=== PATIENT | female | born 1940 | race Caucasian/White ===

== ENCOUNTER 2016-06-20 12:10 | Emergency (ER) | payer OTHER ==
[~2016-06-20] VITALS: Ht 160 cm; Wt 72.3 kg
[~2016-06-20 12:10] MED LIST: ACID REFLUX MED PO; ALLOPURINOL100 MG PO; ALPRAZOLAM0.25 M2 PO; ATORVASTATIN CA80 MG PO; CALCIUM ACETAT667 MG PO; COLACE100 MG PO; FLUOXETINE HCL40 MG PO; FUROSEMIDE80 MG PO; GABAPENTIN300 MG PO; IRON325 M1 PO; LEVAQUIN500 MG PO; LEVOTHROID50 MCG PO; LEVOTHYROXINE50 MCG PO; LIPITOR80 MG PO; OXYCODONE HCL5 MG PO; PROTONIX40 MG PO; RANITIDINE HCL300 M1 PO; SENNA PLUS TAB1 EACH PO; SENNA8.6 MG PO; SENSI CARE MOIS PO; SENSIPAR30 MG PO; SEROQUEL100 MG PO; TYLENOL EXTRA500 MG PO; VITAMIN D31000 UNI2 PO; ZANTAC 2525 MG PO; ZANTAC150 M1 PO; ZEMPLAR1 MCG PO; ZYLOPRIM50 MG PO
[2016-06-20 13:34] LABS: HEMATOCRIT 36.5 % (36.0-46.0); MCH 33.2 PG (29.0-34.0); MCHC 30.7 G/DL (30.0-36.0); MCV 108.3 FL (83-99); MEAN PLAT.VOLUME 9.4 uM^3 (9.5-12.4); PLATELET COUNT 286 K/uL (156-360); RBC DIS.WIDTH-CV 14.3 % (11.8-14.6); RBC DIS.WIDTH-SD 57.1 % (39-53); RED BLOOD COUNT 3.37 M/uL (3.80-5.20); WHITE BLOOD COUNT 8.5 K/uL (4.1-10.2)
[2016-06-20 13:52] LABS: CHLORIDE 98 mEq/L (99-109); POTASSIUM 4.4 mEq/L (3.7-5.4); SODIUM 136 mEq/L (136-147)
[2016-06-20 13:54] LABS: GLUCOSE 98 mg/dL (70-99)
[2016-06-20 13:56] LABS: ANION GAP 13 MEQ/L (2-14); TOTAL BILIRUBIN 0.4 mg/dL (0.0-1.0)
[2016-06-20 13:58] LABS: ALKALINE PHOSPHATASE 92 IU/L (3-129); GFR ESTIMATE (CALCULATED) 8 mL/min/
[2016-06-20 13:59] LABS: UREA NITROGEN (BUN) 36 mg/dL (9-23)
[2016-06-20] MEDS ORDERED: PRILOSEC20 MG PO (17:34)
[2016-06-20 17:51] VITALS: BP 111/60
== END 2016-06-20 17:51 | disposition home or self-care (01) ==
LOC: EME 12:10
DX: K66.8 Other specified disorders of peritoneum (principal); K40.90 Unilateral inguinal hernia, without obstruction or gangrene, not specified as recurrent; Z85.528 Personal history of other malignant neoplasm of kidney; Z90.5 Acquired absence of kidney; Z99.2 Dependence on renal dialysis; Z85.118 Personal history of other malignant neoplasm of bronchus and lung; Z90.710 Acquired absence of both cervix and uterus
CPT/HCPCS: 80053; 81003; 85027; 99281; 99284

== ENCOUNTER 2016-07-29 08:37 | Day surgery (SDC) | payer OTHER ==
[~2016-07-29] VITALS: Ht 157.5 cm; Wt 66.0 kg
[~2016-07-29 08:37] MED LIST changes: +PRILOSEC20 MG PO
[2016-07-29 09:01] VITALS: BP 121/61
[2016-07-29 09:34] LABS: HEMATOCRIT 34.5 % (36.0-46.0); MCH 34.1 PG (29.0-34.0); MCHC 32.8 G/DL (30.0-36.0); MCV 104.2 FL (83-99); MEAN PLAT.VOLUME 9.3 uM^3 (9.5-12.4); PLATELET COUNT 262 K/uL (156-360); RBC DIS.WIDTH-CV 14.4 % (11.8-14.6); RBC DIS.WIDTH-SD 54.6 % (39-53); RED BLOOD COUNT 3.31 M/uL (3.80-5.20); WHITE BLOOD COUNT 9.9 K/uL (4.1-10.2)
[2016-07-29 09:53] LABS: ANION GAP 17 MEQ/L (2-14); CHLORIDE 98 MEQ/L (99-109); POTASSIUM 3.4 MEQ/L (3.7-5.4); SAMPLE HEMOLYSIS CHECK 0; SAMPLE ICTERIC CHECK 0; SAMPLE LIPEMIA CHECK 0; SODIUM 138 MEQ/L (136-147)
[2016-07-29 09:59] LABS: GFR ESTIMATE (CALCULATED) 6 mL/min/; GLUCOSE 132 mg/dL (70-99); UREA NITROGEN (BUN) 60 mg/dL (9-23)
[2016-07-29 13:20] VITALS: BP 152/77
[2016-07-29 14:12] VITALS: BP 130/60
[2016-07-29 14:30] VITALS: BP 136/73
== END 2016-07-29 15:02 | disposition home or self-care (01) ==
LOC: SDC 08:37
PROVIDERS: Surgery
PROC: 0YU60JZ Supplement Left Inguinal Region with Synthetic Substitute, Open Approach (ICD-10-PCS; principal; 2016-07-29)
DX: K40.90 Unilateral inguinal hernia, without obstruction or gangrene, not specified as recurrent (principal); K44.9 Diaphragmatic hernia without obstruction or gangrene; K27.9 Peptic ulcer, site unspecified, unspecified as acute or chronic, without hemorrhage or perforation; Z85.528 Personal history of other malignant neoplasm of kidney; Z85.118 Personal history of other malignant neoplasm of bronchus and lung; Z88.0 Allergy status to penicillin; Z88.2 Allergy status to sulfonamides
CPT/HCPCS: 80048; 85027; 93005; C1781; J0131; J2405; J3010

== ENCOUNTER 2017-05-22 13:50 | Inpatient (IN) | payer OTHER ==
[~2017-05-22] VITALS: Ht 160 cm; Wt 79.5 kg
[2017-05-22 14:53] LABS: BASOPHIL (%) 0.2 % (0-1); EOSINOPHIL (%) 0.4 % (0-5); EOSINOPHIL COUNT 0.1 K/uL (0-0.3); HEMATOCRIT 39.1 % (36.0-46.0); HEMOGLOBIN 12.5 G/DL (11.9-15.5); IMMATURE GRANULOCYTE (%) 1.1 % (0.0-0.7); LYMPHOCYTE (%) 5.2 % (15-42); LYMPHOCYTE COUNT 0.7 K/uL (1.0-2.8); MCH 32.4 PG (29.0-34.0); MCV 101.3 FL (83-99); MONOCYTE (%) 6.7 % (3-12); MONOCYTE COUNT 0.9 K/uL (0-0.8); NEUTROPHIL (%) 86.4 % (45-76); NEUTROPHIL COUNT 10.9 K/uL (1.8-6.4); PLATELET COUNT 356 K/uL (156-360); RBC DIS.WIDTH-CV 15.4 % (11.8-14.6); RBC DIS.WIDTH-SD 57.8 % (39-53); RED BLOOD COUNT 3.86 M/uL (3.80-5.20); WHITE BLOOD COUNT 12.6 K/uL (4.1-10.2)
[2017-05-22 15:05] LABS: PTT 26.1 SEC (25-37)
[2017-05-22 15:06] LABS: ALBUMIN 2.8 g/dL (3.2-4.8); CHLORIDE 93 mEq/L (99-109); POTASSIUM 3.1 mEq/L (3.7-5.4); SODIUM 137 mEq/L (136-147)
[2017-05-22 15:07] LABS: MAGNESIUM 2.6 mg/dL (1.3-2.7)
[2017-05-22 15:09] LABS: GLUCOSE 132 mg/dL (70-99); TOTAL PROTEIN 6.4 g/dL (6.4-8.3)
[2017-05-22 15:11] LABS: TOTAL BILIRUBIN 0.5 mg/dL (0.0-1.0)
[2017-05-22 15:12] LABS: ALKALINE PHOSPHATASE 152 IU/L (3-129)
[2017-05-22 15:13] LABS: CREATININE 9.2 mg/dL (0.6-1.3); GFR ESTIMATE (CALCULATED) 4 mL/min/
[2017-05-22 15:14] LABS: AST (GOT) 13 IU/L (2-34); UREA NITROGEN (BUN) 71 mg/dL (9-23)
[2017-05-22 15:16] LABS: ALT (GPT) 10 IU/L (3-49)
[2017-05-22 15:23] LABS: TROP-I INTERPRETATION NEGATIVE; TROPONIN-I 0.03 ng/mL (0.0-0.30)
[2017-05-22 15:24] LABS: CK-MB 0.6 ng/mL (0.0-4.9)
[2017-05-22 15:49] LABS: CKMB RELATIVE INDEX 3.3 (0.0-3.9); CREATINE KINASE 18 IU/L (1-294); TOTAL CK 18 IU/L (1-294)
[2017-05-22] MEDS ORDERED: NIFEREX-150,FE150 MG PO (20:32)
[2017-05-22] MEDS ORDERED: DIALYVITE 3,001 EACH PO (20:33)
[2017-05-22] MEDS ORDERED: AMBIEN5 MG PO (20:33)
[2017-05-22] MEDS ORDERED: FISH OIL 1,3601 EACH PO (20:34)
[2017-05-22] MEDS ORDERED: ROBITUSSIN DM118 ML PO (20:35)
[2017-05-22] MEDS ORDERED: NORCO 7.5/321 TABLET PO (20:35)
[2017-05-22 23:58] VITALS: BP 132/63
[2017-05-23] VITALS (9 sets, daily range): BP systolic 67–152; BP diastolic 47–69
[2017-05-23 08:42] LABS: HEMATOCRIT 38.3 % (36.0-46.0); HEMOGLOBIN 12.1 G/DL (11.9-15.5); MCH 32.7 PG (29.0-34.0); MCHC 31.6 G/DL (30.0-36.0); MCV 103.5 FL (83-99); PLATELET COUNT 383 K/uL (156-360); RBC DIS.WIDTH-CV 15.6 % (11.8-14.6); RBC DIS.WIDTH-SD 58.4 % (39-53); WHITE BLOOD COUNT 10.8 K/uL (4.1-10.2)
[2017-05-23 09:05] LABS: CHLORIDE 94 MEQ/L (99-109); CREATININE 8.4 MG/DL (0.6-1.3); GFR ESTIMATE (CALCULATED) 5 mL/min/; GLUCOSE 120 mg/dL (70-99); POTASSIUM 3.7 MEQ/L (3.7-5.4); SODIUM 137 MEQ/L (136-147); UREA NITROGEN (BUN) 67 mg/dL (9-23)
[2017-05-24 03:48] VITALS: BP 125/58
[2017-05-24 07:50] LABS: TYPE OF FLUID PD FLUID
[2017-05-24 08:08] VITALS: BP 107/58
[2017-05-24 08:08] LABS: APPEARANCE CLEAR/COLORLESS; BODY FLUID EOSINOPHILS 0 % (0-25); BODY FLUID RBC'S 3 /MM^3 (0-100); BODY FLUID WBC'S 1 /MM^3 (0-500); MONONUCLEAR WBC'S 100 %; POLYNUCLEAR WBC'S 0 % (0-25)
[2017-05-24 12:45] VITALS: BP 149/68
[2017-05-24 15:26] VITALS: BP 123/57
[2017-05-24 18:54] VITALS: BP 121/57
[2017-05-24 22:20] VITALS: BP 134/64
[2017-05-25 03:58] VITALS: BP 117/56
[2017-05-25 06:45] VITALS: BP 103/51
[2017-05-25 10:26] LABS: ALBUMIN 2.3 G/DL (3.2-4.8); CHLORIDE 94 MEQ/L (99-109); GFR ESTIMATE (CALCULATED) 6 mL/min/; GLUCOSE 102 mg/dL (70-99); PHOSPHORUS 4.9 mg/dL (2.5-4.9); POTASSIUM 3.1 MEQ/L (3.7-5.4); SODIUM 135 MEQ/L (136-147); UREA NITROGEN (BUN) 55 mg/dL (9-23); VANCOMYCIN, TROUGH 16.8 MCG/ML (10-20)
[2017-05-25 11:00] VITALS: BP 109/56
[2017-05-25 15:30] VITALS: BP 90/50
[2017-05-25 19:58] VITALS: BP 112/59
[2017-05-25 23:43] VITALS: BP 112/59; BP 123/59
[2017-05-26 04:10] VITALS: BP 120/56
[2017-05-26 07:25] VITALS: BP 98/54
[2017-05-26] MEDS ORDERED: HYDROCODON-ACE1 EAC7 PO (08:08)
[2017-05-26] MEDS ORDERED: LEVOFLOXACIN500 MG PO (14:18)
[2017-05-26] MEDS ORDERED: PANTOPRAZOLE SO40 MG PO (14:19)
== END 2017-05-26 16:33 | disposition home health service (06) | DRG 166 ==
LOC: EME 13:50 → 5EAST 20:03 → EDOF 20:03 → ENRESERV 20:06 → 5EAST 21:36
PROVIDERS: Emergency Medicine; Family Medicine; Internal Medicine Nephrology; Internal Medicine Pulmonary Disease
DX: J18.9 Pneumonia, unspecified organism (principal); T17.590A Other foreign object in bronchus causing asphyxiation, initial encounter; S22.42XA Multiple fractures of ribs, left side, initial encounter for closed fracture; S32.019A Unspecified fracture of first lumbar vertebra, initial encounter for closed fracture; W06.XXXA Fall from bed, initial encounter; Y92.003 Bedroom of unspecified non-institutional (private) residence as the place of occurrence of the external cause; I95.9 Hypotension, unspecified; E86.0 Dehydration; N18.6 End stage renal disease; D63.1 Anemia in chronic kidney disease; M10.9 Gout, unspecified; E78.5 Hyperlipidemia, unspecified; G47.00 Insomnia, unspecified; F41.9 Anxiety disorder, unspecified; F32.9 Major depressive disorder, single episode, unspecified; G89.29 Other chronic pain; M54.5 Low back pain; E03.9 Hypothyroidism, unspecified; K21.9 Gastro-esophageal reflux disease without esophagitis; G62.9 Polyneuropathy, unspecified; M84.48XA Pathological fracture, other site, initial encounter for fracture; E78.1 Pure hyperglyceridemia; Z88.0 Allergy status to penicillin; Z88.2 Allergy status to sulfonamides; Z99.2 Dependence on renal dialysis; Z86.718 Personal history of other venous thrombosis and embolism; Z85.528 Personal history of other malignant neoplasm of kidney; Z90.5 Acquired absence of kidney; Z85.118 Personal history of other malignant neoplasm of bronchus and lung; Z90.2 Acquired absence of lung [part of]
CPT/HCPCS: 70450; 71045; 71250; 72125; 72128; 72131; 80048; 80053; 80069; 80202; 81003; 82550; 82553; 82948; 83735; 84484; 85025; 85027; 85610; 85730; 87070; 87102; 87116; 87205; 87206; 87278; 88108; 89051; 93005; 94640; 94799; 99281; 99285; J1644; J1956; J2250; J2310; J2550; J3010; J3370; J7030

== ENCOUNTER 2017-06-18 15:45 | Day surgery (SDC) | payer OTHER ==
[~2017-06-18] VITALS: Ht 157.5 cm; Wt 78.0 kg
[~2017-06-18 15:45] MED LIST changes: +AMBIEN5 MG PO; +DIALYVITE 3,001 EACH PO; +FISH OIL 1,3601 EACH PO; +HYDROCODON-ACE1 EAC7 PO; +LEVOFLOXACIN500 MG PO; +NIFEREX-150,FE150 MG PO; +NORCO 7.5/321 TABLET PO; +PANTOPRAZOLE SO40 MG PO; +ROBITUSSIN DM118 ML PO
[2017-06-18 17:19] LABS: HEMATOCRIT 33.2 % (36.0-46.0); HEMOGLOBIN 10.3 G/DL (11.9-15.5); MCH 32.2 PG (29.0-34.0); MCV 103.8 FL (83-99); NRBC (%) 0.4 /100 WBC (0-0); RBC DIS.WIDTH-CV 14.6 % (11.8-14.6); RBC DIS.WIDTH-SD 56.1 % (39-53); WHITE BLOOD COUNT 5.3 K/uL (4.1-10.2)
[2017-06-18 17:31] LABS: CHLORIDE 98 MEQ/L (99-109); POTASSIUM 4.1 MEQ/L (3.7-5.4); SODIUM 137 MEQ/L (136-147)
[2017-06-18 17:33] VITALS: BP 140/72
[2017-06-18 17:36] LABS: PLAT.SUFFICIENCY ADEQUATE; PLATELET COUNT 194 K/uL (156-360)
[2017-06-18 17:38] LABS: CREATININE 6.3 MG/DL (0.6-1.3); GFR ESTIMATE (CALCULATED) 7 mL/min/; GLUCOSE 88 mg/dL (70-99); UREA NITROGEN (BUN) 54 mg/dL (9-23)
[2017-06-18 23:30] VITALS: BP 180/90
[2017-06-18 23:35] VITALS: BP 162/84
[2017-06-19 03:10] VITALS: BP 118/68
[2017-06-19 06:54] VITALS: BP 170/90
[2017-06-19 07:00] VITALS: BP 105/59
[2017-06-19 07:17] VITALS: BP 105/59
== END 2017-06-19 15:05 | disposition home or self-care (01) ==
LOC: SDC 15:45 → 5EAST 22:03 → 2SOUTH 22:03 → ENRESERV 22:06 → 5EAST 22:53
PROVIDERS: Surgery
PROC: 0WWG00Z Revision of Drainage Device in Peritoneal Cavity, Open Approach (ICD-10-PCS; principal; 2017-06-18)
DX: T85.611A Breakdown (mechanical) of intraperitoneal dialysis catheter, initial encounter (principal); Y83.1 Surgical operation with implant of artificial internal device as the cause of abnormal reaction of the patient, or of later complication, without mention of misadventure at the time of the procedure; N18.6 End stage renal disease; Z99.2 Dependence on renal dialysis; Z85.528 Personal history of other malignant neoplasm of kidney; Z88.0 Allergy status to penicillin; Z88.2 Allergy status to sulfonamides; Z88.5 Allergy status to narcotic agent
CPT/HCPCS: 71046; 80048; 85027; C1750; G0378; J0330; J1170; J1580; J2250; J3010; J3370; J7040; S0020

== ENCOUNTER 2017-07-11 14:44 | Inpatient (IN) | payer OTHER ==
[~2017-07-11] VITALS: Ht 154.9 cm; Wt 74.4 kg
[2017-07-11 17:01] LABS: BASOPHIL (%) 0.2 % (0-1); EOSINOPHIL (%) 0.1 % (0-5); HEMATOCRIT 32.3 % (36.0-46.0); HEMOGLOBIN 10.3 G/DL (11.9-15.5); IMMATURE GRANULOCYTE (%) 0.5 % (0.0-0.7); LYMPHOCYTE (%) 6.5 % (15-42); LYMPHOCYTE COUNT 1.1 K/uL (1.0-2.8); MCH 32.9 PG (29.0-34.0); MCHC 31.9 G/DL (30.0-36.0); MCV 103.2 FL (83-99); MONOCYTE (%) 3.6 % (3-12); MONOCYTE COUNT 0.6 K/uL (0-0.8); NEUTROPHIL (%) 89.1 % (45-76); NEUTROPHIL COUNT 14.5 K/uL (1.8-6.4); PLATELET COUNT 199 K/uL (156-360); RBC DIS.WIDTH-CV 15.6 % (11.8-14.6); RBC DIS.WIDTH-SD 59.7 % (39-53); RED BLOOD COUNT 3.13 M/uL (3.80-5.20); WHITE BLOOD COUNT 16.3 K/uL (4.1-10.2)
[2017-07-11 17:09] LABS: PTT 27.1 SEC (25-37)
[2017-07-11 17:10] LABS: ALBUMIN 2.6 g/dL (3.2-4.8); CHLORIDE 98 mEq/L (99-109); POTASSIUM 3.2 mEq/L (3.7-5.4); SODIUM 139 mEq/L (136-147)
[2017-07-11 17:11] LABS: MAGNESIUM 2.6 mg/dL (1.3-2.7)
[2017-07-11 17:12] LABS: GLUCOSE 99 mg/dL (70-99); TOTAL PROTEIN 5.1 g/dL (6.4-8.3)
[2017-07-11 17:14] LABS: TOTAL BILIRUBIN 0.5 mg/dL (0.0-1.0)
[2017-07-11 17:16] LABS: ALKALINE PHOSPHATASE 134 IU/L (3-129); CREATININE 6.5 mg/dL (0.6-1.3); GFR ESTIMATE (CALCULATED) 7 mL/min/
[2017-07-11 17:17] LABS: UREA NITROGEN (BUN) 46 mg/dL (9-23)
[2017-07-11 17:18] LABS: AST (GOT) 17 IU/L (2-34)
[2017-07-11 17:19] LABS: ALT (GPT) 28 IU/L (3-49)
[2017-07-11] MEDS ORDERED: PROTONIX40 MG PO (17:42)
[2017-07-11 19:50] VITALS: BP 135/82
[2017-07-11 23:38] VITALS: BP 129/64
[2017-07-12 05:32] LABS: BASOPHIL (%) 0.1 % (0-1); EOSINOPHIL (%) 0.7 % (0-5); EOSINOPHIL COUNT 0.1 K/uL (0-0.3); HEMATOCRIT 30.2 % (36.0-46.0); HEMOGLOBIN 9.4 G/DL (11.9-15.5); IMMATURE GRANULOCYTE (%) 0.6 % (0.0-0.7); LYMPHOCYTE COUNT 2.6 K/uL (1.0-2.8); MCH 32.3 PG (29.0-34.0); MCHC 31.1 G/DL (30.0-36.0); MCV 103.8 FL (83-99); MONOCYTE (%) 4.6 % (3-12); MONOCYTE COUNT 0.7 K/uL (0-0.8); PLATELET COUNT 244 K/uL (156-360); RBC DIS.WIDTH-CV 15.6 % (11.8-14.6); RBC DIS.WIDTH-SD 58.6 % (39-53); RED BLOOD COUNT 2.91 M/uL (3.80-5.20); WHITE BLOOD COUNT 14.5 K/uL (4.1-10.2)
[2017-07-12 05:40] VITALS: BP 121/58
[2017-07-12 06:17] LABS: CHLORIDE 95 MEQ/L (99-109); CREATININE 6.5 MG/DL (0.6-1.3); GFR ESTIMATE (CALCULATED) 7 mL/min/; GLUCOSE 111 mg/dL (70-99); SODIUM 137 MEQ/L (136-147); UREA NITROGEN (BUN) 48 mg/dL (9-23)
[2017-07-12 11:20] VITALS: BP 141/71
[2017-07-12 15:12] VITALS: BP 135/70
[2017-07-12 19:05] VITALS: BP 93/55
[2017-07-13 05:02] VITALS: BP 114/60
[2017-07-13 05:30] LABS: BASOPHIL (%) 0.2 % (0-1); EOSINOPHIL (%) 0.6 % (0-5); EOSINOPHIL COUNT 0.1 K/uL (0-0.3); HEMATOCRIT 29.5 % (36.0-46.0); LYMPHOCYTE (%) 17.9 % (15-42); LYMPHOCYTE COUNT 1.8 K/uL (1.0-2.8); MCHC 30.5 G/DL (30.0-36.0); MONOCYTE (%) 7.2 % (3-12); MONOCYTE COUNT 0.7 K/uL (0-0.8); NEUTROPHIL (%) 73.1 % (45-76); NEUTROPHIL COUNT 7.2 K/uL (1.8-6.4); PLATELET COUNT 214 K/uL (156-360); RBC DIS.WIDTH-CV 15.8 % (11.8-14.6); RBC DIS.WIDTH-SD 61.1 % (39-53); RED BLOOD COUNT 2.81 M/uL (3.80-5.20); WHITE BLOOD COUNT 9.8 K/uL (4.1-10.2)
[2017-07-13 06:12] LABS: CHLORIDE 97 MEQ/L (99-109); CREATININE 5.8 MG/DL (0.6-1.3); GFR ESTIMATE (CALCULATED) 8 mL/min/; GLUCOSE 118 mg/dL (70-99); SODIUM 136 MEQ/L (136-147); UREA NITROGEN (BUN) 44 mg/dL (9-23)
[2017-07-13 06:18] LABS: POTASSIUM 3.8 MEQ/L (3.7-5.4)
[2017-07-13 08:40] VITALS: BP 99/53
[2017-07-13 12:36] VITALS: BP 99/52
[2017-07-13 21:07] VITALS: BP 103/59
[2017-07-13 23:37] VITALS: BP 101/52
[2017-07-14 00:19] VITALS: BP 90/52
[2017-07-14 05:10] LABS: BASOPHIL (%) 0.3 % (0-1); EOSINOPHIL COUNT 0.2 K/uL (0-0.3); HEMATOCRIT 29.6 % (36.0-46.0); HEMOGLOBIN 9.3 G/DL (11.9-15.5); IMMATURE GRANULOCYTE (%) 1.3 % (0.0-0.7); LYMPHOCYTE (%) 24.9 % (15-42); LYMPHOCYTE COUNT 2.5 K/uL (1.0-2.8); MCHC 31.4 G/DL (30.0-36.0); MONOCYTE (%) 7.8 % (3-12); MONOCYTE COUNT 0.8 K/uL (0-0.8); NEUTROPHIL (%) 63.7 % (45-76); NEUTROPHIL COUNT 6.3 K/uL (1.8-6.4); PLATELET COUNT 220 K/uL (156-360); RBC DIS.WIDTH-CV 16.1 % (11.8-14.6); RBC DIS.WIDTH-SD 61.9 % (39-53); RED BLOOD COUNT 2.82 M/uL (3.80-5.20); WHITE BLOOD COUNT 9.9 K/uL (4.1-10.2)
[2017-07-14 05:15] VITALS: BP 72/44
[2017-07-14 06:07] LABS: CHLORIDE 97 MEQ/L (99-109); CREATININE 5.7 MG/DL (0.6-1.3); GFR ESTIMATE (CALCULATED) 8 mL/min/; GLUCOSE 101 mg/dL (70-99); POTASSIUM 3.7 MEQ/L (3.7-5.4); SODIUM 135 MEQ/L (136-147); UREA NITROGEN (BUN) 42 mg/dL (9-23)
[2017-07-14 07:01] VITALS: BP 84/77
[2017-07-14 08:20] VITALS: BP 100/53
[2017-07-14 20:30] VITALS: BP 103/58
[2017-07-15 00:35] VITALS: BP 95/45
[2017-07-15 03:00] VITALS: BP 113/56
[2017-07-15 06:01] LABS: CHLORIDE 94 MEQ/L (99-109); CREATININE 5.6 MG/DL (0.6-1.3); GFR ESTIMATE (CALCULATED) 8 mL/min/; GLUCOSE 103 mg/dL (70-99); SODIUM 131 MEQ/L (136-147); UREA NITROGEN (BUN) 44 mg/dL (9-23)
[2017-07-15 06:09] LABS: BASOPHIL (%) 0.5 % (0-1); BASOPHIL COUNT 0.1 K/uL (0-0.1); EOSINOPHIL (%) 2.4 % (0-5); EOSINOPHIL COUNT 0.3 K/uL (0-0.3); HEMATOCRIT 27.2 % (36.0-46.0); HEMOGLOBIN 8.4 G/DL (11.9-15.5); IMMATURE GRANULOCYTE (%) 2.4 % (0.0-0.7); LYMPHOCYTE (%) 25.7 % (15-42); LYMPHOCYTE COUNT 2.7 K/uL (1.0-2.8); MCH 32.6 PG (29.0-34.0); MCHC 30.9 G/DL (30.0-36.0); MCV 105.4 FL (83-99); MONOCYTE (%) 8.8 % (3-12); MONOCYTE COUNT 0.9 K/uL (0-0.8); NEUTROPHIL (%) 60.2 % (45-76); NEUTROPHIL COUNT 6.3 K/uL (1.8-6.4); PLATELET COUNT 193 K/uL (156-360); RBC DIS.WIDTH-CV 15.9 % (11.8-14.6); RBC DIS.WIDTH-SD 61.1 % (39-53); RED BLOOD COUNT 2.58 M/uL (3.80-5.20); WHITE BLOOD COUNT 10.5 K/uL (4.1-10.2)
[2017-07-15 07:32] VITALS: BP 95/64
[2017-07-15 16:01] VITALS: BP 101/74
[2017-07-15 22:49] VITALS: BP 100/61
[2017-07-16] VITALS (8 sets, daily range): BP systolic 79–132; BP diastolic 5–59
[2017-07-16 05:17] LABS: BASOPHIL (%) 0.6 % (0-1); BASOPHIL COUNT 0.1 K/uL (0-0.1); EOSINOPHIL (%) 2.6 % (0-5); EOSINOPHIL COUNT 0.2 K/uL (0-0.3); HEMATOCRIT 27.3 % (36.0-46.0); HEMOGLOBIN 8.5 G/DL (11.9-15.5); IMMATURE GRANULOCYTE (%) 4.9 % (0.0-0.7); LYMPHOCYTE (%) 31.4 % (15-42); LYMPHOCYTE COUNT 2.8 K/uL (1.0-2.8); MCH 32.6 PG (29.0-34.0); MCHC 31.1 G/DL (30.0-36.0); MCV 104.6 FL (83-99); MONOCYTE (%) 8.1 % (3-12); MONOCYTE COUNT 0.7 K/uL (0-0.8); NEUTROPHIL (%) 52.4 % (45-76); NEUTROPHIL COUNT 4.7 K/uL (1.8-6.4); PLATELET COUNT 204 K/uL (156-360); RBC DIS.WIDTH-CV 15.9 % (11.8-14.6); RBC DIS.WIDTH-SD 59.7 % (39-53); RED BLOOD COUNT 2.61 M/uL (3.80-5.20); WHITE BLOOD COUNT 8.9 K/uL (4.1-10.2)
[2017-07-16 05:51] LABS: CHLORIDE 94 MEQ/L (99-109); CREATININE 5.5 MG/DL (0.6-1.3); GFR ESTIMATE (CALCULATED) 8 mL/min/; GLUCOSE 103 mg/dL (70-99); POTASSIUM 4.6 MEQ/L (3.7-5.4); SODIUM 133 MEQ/L (136-147); UREA NITROGEN (BUN) 42 mg/dL (9-23)
[2017-07-17 00:20] VITALS: BP 87/52
[2017-07-17 05:13] LABS: HEMATOCRIT 27.5 % (36.0-46.0); HEMOGLOBIN 8.7 G/DL (11.9-15.5); MCH 33.1 PG (29.0-34.0); MCHC 31.6 G/DL (30.0-36.0); MCV 104.6 FL (83-99); PLATELET COUNT 218 K/uL (156-360); RBC DIS.WIDTH-CV 15.9 % (11.8-14.6); RBC DIS.WIDTH-SD 60.2 % (39-53); RED BLOOD COUNT 2.63 M/uL (3.80-5.20); WHITE BLOOD COUNT 9.6 K/uL (4.1-10.2)
[2017-07-17 05:31] VITALS: BP 88/47
[2017-07-17 05:38] LABS: CHLORIDE 93 MEQ/L (99-109); CREATININE 5.2 MG/DL (0.6-1.3); GFR ESTIMATE (CALCULATED) 9 mL/min/; GLUCOSE 102 mg/dL (70-99); SODIUM 133 MEQ/L (136-147); UREA NITROGEN (BUN) 46 mg/dL (9-23)
[2017-07-17 05:39] LABS: POTASSIUM 3.5 MEQ/L (3.7-5.4)
[2017-07-17 06:25] LABS: ABS NEUTROPHIL COUNT 5.8; ANISOCYTOSIS 1+; ATYPICAL LYMPHOCYTE 2.6 %; BAND NEUTROPHILS 2.6 % (0-8.0); BASOPH.STIPPLING 1+; BASOPHILS 1.7 %; EOSINOPHIL ABS CT 0.2; EOSINOPHILS 1.7 % (0-5.0); LYMPHOCYTES 24.4 % (15.0-45.0); MACROCYTES 1+; METAMYELOCYTES 2.6 %; MONOCYTES 5.2 % (0-9.0); MYELOCYTES 0.9 %; NUCLEATED RBC'S 0.9; PLAT.SUFFICIENCY ADEQUATE; SEG.NEUTROPHILS 58.3 % (46.0-76.0)
[2017-07-17 08:09] VITALS: BP 103/59
[2017-07-17] MEDS ORDERED: SENSIPAR30 MG PO (09:00)
[2017-07-17] MEDS ORDERED: ENDOCET 5-3251 EACH PO (09:02)
[2017-07-17 11:20] VITALS: BP 101/61
[2017-07-17 19:08] VITALS: BP 119/70
[2017-07-18 00:28] VITALS: BP 90/52
[2017-07-18 05:32] LABS: HEMATOCRIT 25.9 % (36.0-46.0); HEMOGLOBIN 8.1 G/DL (11.9-15.5); MCH 32.5 PG (29.0-34.0); MCHC 31.3 G/DL (30.0-36.0); PLATELET COUNT 210 K/uL (156-360); RBC DIS.WIDTH-CV 15.9 % (11.8-14.6); RBC DIS.WIDTH-SD 59.7 % (39-53); RED BLOOD COUNT 2.49 M/uL (3.80-5.20); WHITE BLOOD COUNT 8.8 K/uL (4.1-10.2)
[2017-07-18 05:55] LABS: CHLORIDE 93 MEQ/L (99-109); CREATININE 5.2 MG/DL (0.6-1.3); GFR ESTIMATE (CALCULATED) 9 mL/min/; GLUCOSE 96 mg/dL (70-99); POTASSIUM 3.3 MEQ/L (3.7-5.4); SODIUM 132 MEQ/L (136-147); UREA NITROGEN (BUN) 45 mg/dL (9-23)
[2017-07-18 06:03] LABS: ABS NEUTROPHIL COUNT 6.2; ANISOCYTOSIS 2+; BAND NEUTROPHILS 2.6 % (0-8.0); EOSINOPHIL ABS CT 0; LYMPHOCYTES 17.6 % (15.0-45.0); MACROCYTES 2+; MONOCYTES 9.7 % (0-9.0); MYELOCYTES 2.6 %; PLAT.SUFFICIENCY ADEQUATE; SEG.NEUTROPHILS 67.5 % (46.0-76.0); SMUDGE CELLS 4.4
[2017-07-18 08:20] VITALS: BP 115/56
== END 2017-07-18 12:58 | disposition home or self-care (01) | DRG 480 ==
LOC: EME 14:44 → EDOF 17:36 → 4EAST 17:36 → ENRESERV 17:48 → 4EAST 19:42
PROVIDERS: Emergency Medicine; Family Medicine; Internal Medicine Nephrology; Orthopaedic Surgery Hand Surgery
PROC: 0QS634Z Reposition Right Upper Femur with Internal Fixation Device, Percutaneous Approach (ICD-10-PCS; principal; 2017-07-16)
DX: S72.141A Displaced intertrochanteric fracture of right femur, initial encounter for closed fracture (principal); N18.6 End stage renal disease; E87.6 Hypokalemia; Y93.01 Activity, walking, marching and hiking; K21.9 Gastro-esophageal reflux disease without esophagitis; W01.0XXA Fall on same level from slipping, tripping and stumbling without subsequent striking against object, initial encounter; R73.9 Hyperglycemia, unspecified; E78.5 Hyperlipidemia, unspecified; I12.0 Hypertensive chronic kidney disease with stage 5 chronic kidney disease or end stage renal disease; S00.03XA Contusion of scalp, initial encounter; E78.1 Pure hyperglyceridemia; E55.9 Vitamin D deficiency, unspecified; F51.04 Psychophysiologic insomnia; D63.1 Anemia in chronic kidney disease; C78.00 Secondary malignant neoplasm of unspecified lung; F41.9 Anxiety disorder, unspecified; F32.9 Major depressive disorder, single episode, unspecified; E03.9 Hypothyroidism, unspecified; S32.010D Wedge compression fracture of first lumbar vertebra, subsequent encounter for fracture with routine healing; Y93.9 Activity, unspecified; Z88.2 Allergy status to sulfonamides; Z99.2 Dependence on renal dialysis; Z88.0 Allergy status to penicillin; Z88.5 Allergy status to narcotic agent; Z90.5 Acquired absence of kidney; Z90.710 Acquired absence of both cervix and uterus; Z85.528 Personal history of other malignant neoplasm of kidney; R09.02 Hypoxemia
CPT/HCPCS: 70450; 71045; 71250; 72125; 73502; 73560; 76000; 80048; 80053; 83735; 85014; 85018; 85025; 85610; 85730; 93005; 94799; 97530 GO; 97530 GP; 99281; 99285; C1713; J0690; J0881; J1100; J1170; J1644; J2405; J3010; J3480; J7050

== ENCOUNTER 2017-07-21 13:09 | Inpatient (IN) | payer OTHER ==
[~2017-07-21] VITALS: Ht 157.5 cm; Wt 79.8 kg
[~2017-07-21 13:09] MED LIST changes: +ENDOCET 5-3251 EACH PO
[2017-07-21 14:49] LABS: BASOPHIL (%) 0.2 % (0-1); EOSINOPHIL (%) 1.2 % (0-5); EOSINOPHIL COUNT 0.2 K/uL (0-0.3); HEMATOCRIT 28.3 % (36.0-46.0); IMMATURE GRANULOCYTE (%) 1.7 % (0.0-0.7); LYMPHOCYTE (%) 11.5 % (15-42); LYMPHOCYTE COUNT 1.5 K/uL (1.0-2.8); MCH 33.3 PG (29.0-34.0); MCHC 31.8 G/DL (30.0-36.0); MCV 104.8 FL (83-99); MONOCYTE (%) 5.6 % (3-12); MONOCYTE COUNT 0.7 K/uL (0-0.8); NEUTROPHIL (%) 79.8 % (45-76); NEUTROPHIL COUNT 10.1 K/uL (1.8-6.4); PLATELET COUNT 186 K/uL (156-360); RBC DIS.WIDTH-CV 16.5 % (11.8-14.6); RBC DIS.WIDTH-SD 62.1 % (39-53); WHITE BLOOD COUNT 12.6 K/uL (4.1-10.2)
[2017-07-21 14:58] LABS: INTER. NORMALIZED RATIO 1.1
[2017-07-21 15:01] LABS: CHLORIDE 99 mEq/L (99-109)
[2017-07-21 15:01] LABS: PTT 24.5 SEC (25-37)
[2017-07-21 15:02] LABS: GLUCOSE 92 mg/dL (70-99)
[2017-07-21 15:06] LABS: GFR ESTIMATE (CALCULATED) 7 mL/min/; POTASSIUM 4.1 mEq/L (3.7-5.4); SODIUM 140 mEq/L (136-147)
[2017-07-21 15:07] LABS: CREATININE 6.3 mg/dL (0.6-1.3); UREA NITROGEN (BUN) 60 mg/dL (9-23)
[2017-07-21 15:10] LABS: TROP-I INTERPRETATION NEGATIVE; TROPONIN-I 0.13 ng/mL (0.0-0.30)
[2017-07-21 19:20] VITALS: BP 109/55
[2017-07-21 23:59] VITALS: BP 78/46
[2017-07-22] VITALS (7 sets, daily range): BP systolic 86–113; BP diastolic 45–62
[2017-07-22 05:33] LABS: BASOPHIL (%) 0.3 % (0-1); EOSINOPHIL (%) 2.6 % (0-5); EOSINOPHIL COUNT 0.2 K/uL (0-0.3); HEMATOCRIT 24.9 % (36.0-46.0); HEMOGLOBIN 7.6 G/DL (11.9-15.5); IMMATURE GRANULOCYTE (%) 2.8 % (0.0-0.7); LYMPHOCYTE (%) 22.2 % (15-42); MCHC 30.5 G/DL (30.0-36.0); MCV 108.3 FL (83-99); MONOCYTE (%) 8.3 % (3-12); MONOCYTE COUNT 0.7 K/uL (0-0.8); NEUTROPHIL (%) 63.8 % (45-76); NEUTROPHIL COUNT 5.7 K/uL (1.8-6.4); PLATELET COUNT 164 K/uL (156-360); RBC DIS.WIDTH-CV 16.7 % (11.8-14.6); RBC DIS.WIDTH-SD 65.5 % (39-53)
[2017-07-22 06:05] LABS: CREATININE 5.9 MG/DL (0.6-1.3); GFR ESTIMATE (CALCULATED) 7 mL/min/; GLUCOSE 94 mg/dL (70-99); POTASSIUM 4.1 MEQ/L (3.7-5.4); SODIUM 138 MEQ/L (136-147); UREA NITROGEN (BUN) 49 mg/dL (9-23)
[2017-07-22 06:09] LABS: CHLORIDE 105 MEQ/L (99-109)
[2017-07-23] VITALS (12 sets, daily range): BP systolic 91–127; BP diastolic 53–68
[2017-07-23 05:14] LABS: BASOPHIL (%) 0.3 % (0-1); EOSINOPHIL (%) 1.8 % (0-5); EOSINOPHIL COUNT 0.2 K/uL (0-0.3); HEMATOCRIT 29.4 % (36.0-46.0); HEMOGLOBIN 9.1 G/DL (11.9-15.5); IMMATURE GRANULOCYTE (%) 3.5 % (0.0-0.7); LYMPHOCYTE (%) 16.4 % (15-42); MCV 103.5 FL (83-99); MONOCYTE (%) 8.1 % (3-12); NEUTROPHIL (%) 69.9 % (45-76); NEUTROPHIL COUNT 8.3 K/uL (1.8-6.4); PLATELET COUNT 183 K/uL (156-360); RBC DIS.WIDTH-CV 18.6 % (11.8-14.6); RBC DIS.WIDTH-SD 70.4 % (39-53); RED BLOOD COUNT 2.84 M/uL (3.80-5.20); WHITE BLOOD COUNT 11.9 K/uL (4.1-10.2)
[2017-07-23 05:55] LABS: CHLORIDE 100 MEQ/L (99-109); CREATININE 5.7 MG/DL (0.6-1.3); GFR ESTIMATE (CALCULATED) 8 mL/min/; GLUCOSE 114 mg/dL (70-99); POTASSIUM 3.5 MEQ/L (3.7-5.4); SODIUM 135 MEQ/L (136-147); UREA NITROGEN (BUN) 47 mg/dL (9-23); VANCOMYCIN, TROUGH 14.6 MCG/ML (10-20)
[2017-07-23 13:32] LABS: HEPATITIS B SURFACE ANTIBODY Nonreactive; HEPATITIS B SURFACE ANTIGEN Nonreactive; HEPATITIS C ANTIBODY Nonreactive
[2017-07-23 13:33] LABS: ANTI-HEPATITIS B CORE (TOTAL) Nonreactive
[2017-07-24 06:39] LABS: CHLORIDE 103 MEQ/L (99-109); CREATININE 5.8 MG/DL (0.6-1.3); GFR ESTIMATE (CALCULATED) 8 mL/min/; POTASSIUM 4.2 MEQ/L (3.7-5.4); SODIUM 137 MEQ/L (136-147); UREA NITROGEN (BUN) 48 mg/dL (9-23)
[2017-07-24 06:40] LABS: GLUCOSE 75 mg/dL (70-99)
[2017-07-24 06:53] LABS: BASOPHIL (%) 0.2 % (0-1); EOSINOPHIL (%) 2.7 % (0-5); EOSINOPHIL COUNT 0.2 K/uL (0-0.3); HEMATOCRIT 29.4 % (36.0-46.0); HEMOGLOBIN 9.4 G/DL (11.9-15.5); IMMATURE GRANULOCYTE (%) 3.1 % (0.0-0.7); LYMPHOCYTE (%) 20.2 % (15-42); LYMPHOCYTE COUNT 1.7 K/uL (1.0-2.8); MCH 31.2 PG (29.0-34.0); MONOCYTE (%) 7.4 % (3-12); MONOCYTE COUNT 0.6 K/uL (0-0.8); NEUTROPHIL (%) 66.4 % (45-76); NEUTROPHIL COUNT 5.7 K/uL (1.8-6.4); PLATELET COUNT 168 K/uL (156-360); RED BLOOD COUNT 3.01 M/uL (3.80-5.20); WHITE BLOOD COUNT 8.5 K/uL (4.1-10.2)
[2017-07-24 06:54] LABS: MCV 97.7 FL (83-99)
[2017-07-24 07:00] VITALS: BP 114/53
[2017-07-24 15:27] VITALS: BP 129/67
[2017-07-25 00:54] VITALS: BP 105/52
[2017-07-25 06:01] LABS: BASOPHIL (%) 0.4 % (0-1); EOSINOPHIL (%) 2.1 % (0-5); EOSINOPHIL COUNT 0.2 K/uL (0-0.3); HEMATOCRIT 30.5 % (36.0-46.0); HEMOGLOBIN 9.6 G/DL (11.9-15.5); IMMATURE GRANULOCYTE (%) 2.5 % (0.0-0.7); LYMPHOCYTE (%) 20.4 % (15-42); LYMPHOCYTE COUNT 1.6 K/uL (1.0-2.8); MCH 31.3 PG (29.0-34.0); MCHC 31.5 G/DL (30.0-36.0); MCV 99.3 FL (83-99); MONOCYTE (%) 9.4 % (3-12); MONOCYTE COUNT 0.8 K/uL (0-0.8); NEUTROPHIL (%) 65.2 % (45-76); NEUTROPHIL COUNT 5.3 K/uL (1.8-6.4); PLATELET COUNT 145 K/uL (156-360); RBC DIS.WIDTH-CV 20.4 % (11.8-14.6); RBC DIS.WIDTH-SD 74.1 % (39-53); RED BLOOD COUNT 3.07 M/uL (3.80-5.20); WHITE BLOOD COUNT 8.1 K/uL (4.1-10.2)
[2017-07-25 06:36] LABS: CHLORIDE 100 MEQ/L (99-109); GFR ESTIMATE (CALCULATED) 14 mL/min/; GLUCOSE 78 mg/dL (70-99); SODIUM 134 MEQ/L (136-147); UREA NITROGEN (BUN) 24 mg/dL (9-23)
[2017-07-25 06:38] LABS: CREATININE 3.3 MG/DL (0.6-1.3)
[2017-07-25 06:58] VITALS: BP 115/59
[2017-07-25 15:15] VITALS: BP 125/58
[2017-07-26 00:03] VITALS: BP 99/50
[2017-07-26 04:10] VITALS: BP 112/54
[2017-07-26 06:23] LABS: BASOPHIL (%) 0.4 % (0-1); EOSINOPHIL (%) 2.7 % (0-5); EOSINOPHIL COUNT 0.2 K/uL (0-0.3); HEMATOCRIT 28.8 % (36.0-46.0); HEMOGLOBIN 9.1 G/DL (11.9-15.5); IMMATURE GRANULOCYTE (%) 1.9 % (0.0-0.7); LYMPHOCYTE (%) 18.8 % (15-42); LYMPHOCYTE COUNT 1.5 K/uL (1.0-2.8); MCH 31.5 PG (29.0-34.0); MCHC 31.6 G/DL (30.0-36.0); MCV 99.7 FL (83-99); MONOCYTE (%) 9.2 % (3-12); MONOCYTE COUNT 0.7 K/uL (0-0.8); NEUTROPHIL COUNT 5.2 K/uL (1.8-6.4); PLATELET COUNT 152 K/uL (156-360); RBC DIS.WIDTH-CV 19.6 % (11.8-14.6); RBC DIS.WIDTH-SD 70.5 % (39-53); RED BLOOD COUNT 2.89 M/uL (3.80-5.20); WHITE BLOOD COUNT 7.8 K/uL (4.1-10.2)
[2017-07-26 06:48] LABS: CHLORIDE 103 MEQ/L (99-109); GFR ESTIMATE (CALCULATED) 10 mL/min/; GLUCOSE 76 mg/dL (70-99); POTASSIUM 3.7 MEQ/L (3.7-5.4); SODIUM 137 MEQ/L (136-147); UREA NITROGEN (BUN) 31 mg/dL (9-23); VANCOMYCIN, TROUGH 20.6 MCG/ML (10-20)
[2017-07-26 06:52] LABS: CREATININE 4.6 MG/DL (0.6-1.3)
[2017-07-26 07:44] VITALS: BP 101/53
[2017-07-26 11:58] VITALS: BP 116/58
[2017-07-26 15:59] VITALS: BP 108/60
[2017-07-26 23:59] VITALS: BP 123/58
[2017-07-27 08:38] VITALS: BP 126/60
[2017-07-27 15:53] VITALS: BP 111/58
[2017-07-27 22:59] VITALS: BP 113/54
[2017-07-28 07:26] VITALS: BP 98/51
[2017-07-28] MEDS ORDERED: CEFTIN500 MG PO (15:45)
[2017-07-28] MEDS ORDERED: ENDOCET 7.5-321 EACH PO (15:45)
[2017-07-28 16:23] VITALS: BP 98/54
== END 2017-07-28 18:08 | DRG 193 ==
LOC: EME 13:09 → 4EAST 17:04 → EDOF 17:04 → ENRESERV 17:08 → 4EAST 19:21 → CANRESERV 07-23 07:23 → 4EAST 07-23 07:23 → ENRESERV 07-23 07:23 → 5EAST 07-23 12:41
PROVIDERS: Emergency Medicine; Family Medicine; Internal Medicine Nephrology
DX: J18.9 Pneumonia, unspecified organism (principal); Y95 Nosocomial condition; R09.02 Hypoxemia; I95.9 Hypotension, unspecified; I12.0 Hypertensive chronic kidney disease with stage 5 chronic kidney disease or end stage renal disease; N18.6 End stage renal disease; D63.1 Anemia in chronic kidney disease; E87.6 Hypokalemia; R73.9 Hyperglycemia, unspecified; L89.610 Pressure ulcer of right heel, unstageable; L89.91 Pressure ulcer of unspecified site, stage 1; E03.9 Hypothyroidism, unspecified; E55.9 Vitamin D deficiency, unspecified; E78.1 Pure hyperglyceridemia; E78.5 Hyperlipidemia, unspecified; K21.0 Gastro-esophageal reflux disease with esophagitis; K59.03 Drug induced constipation; T40.2X5A Adverse effect of other opioids, initial encounter; M81.0 Age-related osteoporosis without current pathological fracture; F41.9 Anxiety disorder, unspecified; F32.9 Major depressive disorder, single episode, unspecified; M10.9 Gout, unspecified; Z85.528 Personal history of other malignant neoplasm of kidney; Z99.2 Dependence on renal dialysis; Z90.5 Acquired absence of kidney; Z88.0 Allergy status to penicillin; Z88.2 Allergy status to sulfonamides; Z88.5 Allergy status to narcotic agent; S72.141D Displaced intertrochanteric fracture of right femur, subsequent encounter for closed fracture with routine healing; S32.019D Unspecified fracture of first lumbar vertebra, subsequent encounter for fracture with routine healing
CPT/HCPCS: 71045; 71250; 73552; 76775; 80048; 80202; 81003; 82533 91; 83605; 84484; 85025; 85610; 85730; 86704; 86706; 86803; 86850; 86870; 86900; 86901; 86905; 86920; 87040; 87340; 87641; 93005; 93306; 94799; 97530 GO; 97530 GP; 99202; 99281; 99285; A6214; C1750; C1894; J0692; J0881; J1644; J1956; J2250; J3010; J3370; J7030; J7040; J7050; P9016

== ENCOUNTER 2017-08-07 14:27 | Emergency (ER) | payer OTHER ==
[~2017-08-07] VITALS: Ht 165.1 cm; Wt 72.6 kg
[~2017-08-07 14:27] MED LIST changes: +CEFTIN500 MG PO; +ENDOCET 7.5-321 EACH PO
[2017-08-07 15:41] LABS: HEMATOCRIT 29.1 % (36.0-46.0); HEMOGLOBIN 9.2 G/DL (11.9-15.5); MCH 31.2 PG (29.0-34.0); MCHC 31.6 G/DL (30.0-36.0); MCV 98.6 FL (83-99); PLATELET COUNT 193 K/uL (156-360); RBC DIS.WIDTH-CV 17.4 % (11.8-14.6); RBC DIS.WIDTH-SD 63.4 % (39-53); RED BLOOD COUNT 2.95 M/uL (3.80-5.20)
[2017-08-07 15:49] LABS: CHLORIDE 99 mEq/L (99-109); POTASSIUM 4.4 mEq/L (3.7-5.4); SODIUM 137 mEq/L (136-147)
[2017-08-07 15:51] LABS: GLUCOSE 68 mg/dL (70-99)
[2017-08-07 15:55] LABS: GFR ESTIMATE (CALCULATED) 12 mL/min/
[2017-08-07 15:56] LABS: UREA NITROGEN (BUN) 24 mg/dL (9-23)
[2017-08-07 15:57] LABS: CREATININE 3.9 mg/dL (0.6-1.3)
[2017-08-07 16:01] LABS: TROP-I INTERPRETATION NEGATIVE; TROPONIN-I 0.04 ng/mL (0.0-0.30)
[2017-08-07 19:40] VITALS: BP 145/80
== END 2017-08-07 19:41 ==
LOC: EME 14:27
DX: M25.511 Pain in right shoulder (principal); N18.6 End stage renal disease; Z90.5 Acquired absence of kidney; Z85.528 Personal history of other malignant neoplasm of kidney; Z99.2 Dependence on renal dialysis; Z85.118 Personal history of other malignant neoplasm of bronchus and lung; Z90.2 Acquired absence of lung [part of]
CPT/HCPCS: 71046; 80048; 84484; 85027; 93005; 99281; 99285

== ENCOUNTER 2017-08-12 12:40 | Inpatient (IN) | payer OTHER ==
[~2017-08-12] VITALS: Ht 152.4 cm; Wt 78.6 kg
[2017-08-12 14:14] LABS: CARBON DIOXIDE (BICARBONATE) 30.9 MEQ/L (20-31)
[2017-08-12 14:20] LABS: HEMATOCRIT 27.9 % (36.0-46.0); HEMOGLOBIN 8.8 G/DL (11.9-15.5); MCH 30.9 PG (29.0-34.0); MCHC 31.5 G/DL (30.0-36.0); MCV 97.9 FL (83-99); RBC DIS.WIDTH-CV 17.7 % (11.8-14.6); RED BLOOD COUNT 2.85 M/uL (3.80-5.20); WHITE BLOOD COUNT 16.7 K/uL (4.1-10.2)
[2017-08-12 14:21] LABS: CHLORIDE 94 mEq/L (99-109); POTASSIUM 4.6 mEq/L (3.7-5.4); SODIUM 131 mEq/L (136-147)
[2017-08-12 14:23] LABS: GLUCOSE 72 mg/dL (70-99)
[2017-08-12 14:27] LABS: GFR ESTIMATE (CALCULATED) 8 mL/min/
[2017-08-12 14:31] LABS: CREATININE 5.7 mg/dL (0.6-1.3); UREA NITROGEN (BUN) 41 mg/dL (9-23)
[2017-08-12 14:33] LABS: TROP-I INTERPRETATION INDETERMINATE; TROPONIN-I 0.35 ng/mL (0.0-0.30)
[2017-08-12 15:05] LABS: PLATELET COUNT 103 K/uL (156-360)
[2017-08-12] MEDS ORDERED: FLEET MINERAL133 ML PR (15:24)
[2017-08-12] MEDS ORDERED: DULCOLAX10 MG PR (15:24)
[2017-08-12] MEDS ORDERED: LASIX40 MG PO (15:25)
[2017-08-12] MEDS ORDERED: SENNA-S TABLET1 EACH PO (15:25)
[2017-08-12] MEDS ORDERED: MIRALAX17 GM PO (15:25)
[2017-08-12] MEDS ORDERED: CEFTIN500 MG PO (15:26)
[2017-08-12] MEDS ORDERED: DUONEB 2.5-0.5 M3 ML AEROSOL (15:26)
[2017-08-12] MEDS ORDERED: OMEGA 3-6-9 11200 MG PO (15:29)
[2017-08-12] MEDS ORDERED: ZOFRAN4 MG PO (15:30)
[2017-08-12] MEDS ORDERED: PROTONIX40 MG PO (15:30)
[2017-08-12] MEDS ORDERED: ARICEPT10 MG PO (15:30)
[2017-08-12] MEDS ORDERED: PHENADOZ25 MG PR (15:31)
[2017-08-12] MEDS ORDERED: PROMETHAZINE HC25 M1 PO (15:31)
[2017-08-12 20:43] VITALS: BP 123/59
[2017-08-13 00:21] VITALS: BP 124/58
[2017-08-13 04:22] VITALS: BP 118/62
[2017-08-13 07:24] VITALS: BP 130/62
[2017-08-13 11:05] VITALS: BP 94/52
[2017-08-13 12:37] LABS: HEPATITIS B SURFACE ANTIGEN Nonreactive
[2017-08-13 15:51] VITALS: BP 103/52
[2017-08-13 17:51] LABS: TROP-I INTERPRETATION NEGATIVE; TROPONIN-I 0.15 ng/mL (0.0-0.30)
[2017-08-13 19:29] VITALS: BP 92/55
[2017-08-14 00:09] VITALS: BP 102/58
[2017-08-14 04:23] VITALS: BP 96/62
[2017-08-14 06:46] LABS: BASOPHIL (%) 0.2 % (0-1); EOSINOPHIL (%) 0.7 % (0-5); EOSINOPHIL COUNT 0.1 K/uL (0-0.3); HEMATOCRIT 26.3 % (36.0-46.0); IMMATURE GRANULOCYTE (%) 1.7 % (0.0-0.7); LYMPHOCYTE (%) 11.8 % (15-42); LYMPHOCYTE COUNT 1.4 K/uL (1.0-2.8); MCHC 30.4 G/DL (30.0-36.0); MCV 98.5 FL (83-99); MONOCYTE (%) 5.6 % (3-12); MONOCYTE COUNT 0.7 K/uL (0-0.8); NEUTROPHIL COUNT 9.5 K/uL (1.8-6.4); PLATELET COUNT 114 K/uL (156-360); RBC DIS.WIDTH-CV 17.8 % (11.8-14.6); RBC DIS.WIDTH-SD 64.3 % (39-53); RED BLOOD COUNT 2.67 M/uL (3.80-5.20); WHITE BLOOD COUNT 11.9 K/uL (4.1-10.2)
[2017-08-14 07:09] LABS: ALBUMIN 1.7 G/DL (3.2-4.8); ALKALINE PHOSPHATASE 151 IU/L (3-129); ALT (GPT) 12 IU/L (3-49); AST (GOT) 34 IU/L (2-34); CHLORIDE 99 MEQ/L (99-109); GLUCOSE 85 mg/dL (70-99); TOTAL BILIRUBIN 0.5 MG/DL (0.0-1.0); TOTAL PROTEIN 4.3 G/DL (6.4-8.3); UREA NITROGEN (BUN) 26 mg/dL (9-23); VANCOMYCIN, TROUGH 18.9 MCG/ML (10-20)
[2017-08-14 07:23] LABS: CREATININE 3.9 MG/DL (0.6-1.3); GFR ESTIMATE (CALCULATED) 12 mL/min/; POTASSIUM 3.6 MEQ/L (3.7-5.4); SODIUM 138 MEQ/L (136-147)
[2017-08-14 11:51] VITALS: BP 98/62
[2017-08-14 16:19] VITALS: BP 147/68
[2017-08-14 19:25] VITALS: BP 100/57
[2017-08-15] VITALS (7 sets, daily range): BP systolic 90–113; BP diastolic 51–57
[2017-08-15 06:08] LABS: BASOPHIL (%) 0.1 % (0-1); EOSINOPHIL COUNT 0.1 K/uL (0-0.3); HEMOGLOBIN 7.4 G/DL (11.9-15.5); IMMATURE GRANULOCYTE (%) 1.6 % (0.0-0.7); LYMPHOCYTE (%) 13.9 % (15-42); LYMPHOCYTE COUNT 1.2 K/uL (1.0-2.8); MCHC 30.8 G/DL (30.0-36.0); MCV 100.4 FL (83-99); MONOCYTE (%) 6.1 % (3-12); MONOCYTE COUNT 0.6 K/uL (0-0.8); NEUTROPHIL (%) 77.3 % (45-76); NEUTROPHIL COUNT 6.9 K/uL (1.8-6.4); PLATELET COUNT 126 K/uL (156-360); RBC DIS.WIDTH-CV 17.8 % (11.8-14.6); RBC DIS.WIDTH-SD 65.4 % (39-53); RED BLOOD COUNT 2.39 M/uL (3.80-5.20)
[2017-08-16 03:10] VITALS: BP 92/46
[2017-08-16 08:41] LABS: BASOPHIL (%) 0.2 % (0-1); EOSINOPHIL (%) 0.9 % (0-5); EOSINOPHIL COUNT 0.1 K/uL (0-0.3); HEMATOCRIT 24.5 % (36.0-46.0); HEMOGLOBIN 7.4 G/DL (11.9-15.5); IMMATURE GRANULOCYTE (%) 1.5 % (0.0-0.7); LYMPHOCYTE (%) 12.9 % (15-42); LYMPHOCYTE COUNT 1.2 K/uL (1.0-2.8); MCH 30.5 PG (29.0-34.0); MCHC 30.2 G/DL (30.0-36.0); MCV 100.8 FL (83-99); MONOCYTE (%) 5.3 % (3-12); MONOCYTE COUNT 0.5 K/uL (0-0.8); NEUTROPHIL (%) 79.2 % (45-76); NEUTROPHIL COUNT 7.3 K/uL (1.8-6.4); PLATELET COUNT 161 K/uL (156-360); RBC DIS.WIDTH-CV 17.6 % (11.8-14.6); RBC DIS.WIDTH-SD 65.9 % (39-53); RED BLOOD COUNT 2.43 M/uL (3.80-5.20); WHITE BLOOD COUNT 9.2 K/uL (4.1-10.2)
[2017-08-16 08:57] LABS: CHLORIDE 102 MEQ/L (99-109); CREATININE 3.3 MG/DL (0.6-1.3); GFR ESTIMATE (CALCULATED) 14 mL/min/; PHOSPHORUS 2.6 mg/dL (2.5-4.9); POTASSIUM 3.4 MEQ/L (3.7-5.4); SODIUM 135 MEQ/L (136-147); UREA NITROGEN (BUN) 17 mg/dL (9-23)
[2017-08-16 08:58] LABS: GLUCOSE 114 mg/dL (70-99)
[2017-08-16 16:18] VITALS: BP 122/82
[2017-08-16 20:19] VITALS: BP 126/61
[2017-08-17] VITALS (7 sets, daily range): BP systolic 97–137; BP diastolic 54–65
[2017-08-17 06:51] LABS: BASOPHIL (%) 0.5 % (0-1); BASOPHIL COUNT 0.1 K/uL (0-0.1); EOSINOPHIL (%) 1.4 % (0-5); EOSINOPHIL COUNT 0.2 K/uL (0-0.3); IMMATURE GRANULOCYTE (%) 2.4 % (0.0-0.7); LYMPHOCYTE (%) 15.8 % (15-42); LYMPHOCYTE COUNT 1.7 K/uL (1.0-2.8); MCH 30.4 PG (29.0-34.0); MCHC 31.8 G/DL (30.0-36.0); MONOCYTE (%) 5.6 % (3-12); MONOCYTE COUNT 0.6 K/uL (0-0.8); NEUTROPHIL (%) 74.3 % (45-76); NEUTROPHIL COUNT 7.8 K/uL (1.8-6.4); PLATELET COUNT 180 K/uL (156-360); RBC DIS.WIDTH-CV 18.5 % (11.8-14.6); RBC DIS.WIDTH-SD 63.2 % (39-53); WHITE BLOOD COUNT 10.5 K/uL (4.1-10.2)
[2017-08-17 06:56] LABS: HEMOGLOBIN 10.5 G/DL (11.9-15.5); MCV 95.7 FL (83-99); RED BLOOD COUNT 3.45 M/uL (3.80-5.20)
[2017-08-18] VITALS (7 sets, daily range): BP systolic 82–145; BP diastolic 46–70
[2017-08-19 03:06] VITALS: BP 82/46
[2017-08-19 05:51] VITALS: BP 92/52
[2017-08-19 06:04] LABS: BASOPHIL (%) 0.4 % (0-1); EOSINOPHIL (%) 1.1 % (0-5); EOSINOPHIL COUNT 0.1 K/uL (0-0.3); HEMATOCRIT 31.1 % (36.0-46.0); HEMOGLOBIN 9.6 G/DL (11.9-15.5); IMMATURE GRANULOCYTE (%) 3.7 % (0.0-0.7); LYMPHOCYTE (%) 12.5 % (15-42); LYMPHOCYTE COUNT 1.3 K/uL (1.0-2.8); MCH 30.1 PG (29.0-34.0); MCHC 30.9 G/DL (30.0-36.0); MCV 97.5 FL (83-99); MONOCYTE (%) 6.4 % (3-12); MONOCYTE COUNT 0.6 K/uL (0-0.8); NEUTROPHIL (%) 75.9 % (45-76); NEUTROPHIL COUNT 7.6 K/uL (1.8-6.4); PLATELET COUNT 167 K/uL (156-360); RBC DIS.WIDTH-SD 62.8 % (39-53); RED BLOOD COUNT 3.19 M/uL (3.80-5.20)
[2017-08-19 06:35] LABS: CHLORIDE 103 MEQ/L (99-109); CREATININE 3.4 MG/DL (0.6-1.3); GFR ESTIMATE (CALCULATED) 14 mL/min/; GLUCOSE 81 mg/dL (70-99); POTASSIUM 3.7 MEQ/L (3.7-5.4); SODIUM 138 MEQ/L (136-147); UREA NITROGEN (BUN) 17 mg/dL (9-23)
[2017-08-19 07:16] VITALS: BP 106/58
[2017-08-19 10:58] LABS: HEPATITIS B SURFACE ANTIGEN Nonreactive
[2017-08-19 15:17] VITALS: BP 106/55
[2017-08-19 19:59] VITALS: BP 140/63
[2017-08-19 23:40] VITALS: BP 134/58
[2017-08-20 04:03] VITALS: BP 138/67
[2017-08-20 07:58] VITALS: BP 113/55
[2017-08-20 11:27] VITALS: BP 186/84
[2017-08-20 12:07] VITALS: BP 158/62
[2017-08-20 15:41] VITALS: BP 117/55
[2017-08-20 19:45] VITALS: BP 118/56
[2017-08-21 00:09] VITALS: BP 110/54
[2017-08-21 04:07] VITALS: BP 102/56
[2017-08-21 06:11] LABS: BASOPHIL (%) 0.4 % (0-1); BASOPHIL COUNT 0.1 K/uL (0-0.1); EOSINOPHIL COUNT 0.1 K/uL (0-0.3); HEMATOCRIT 32.3 % (36.0-46.0); HEMOGLOBIN 10.2 G/DL (11.9-15.5); IMMATURE GRANULOCYTE (%) 2.4 % (0.0-0.7); LYMPHOCYTE COUNT 1.9 K/uL (1.0-2.8); MCH 31.2 PG (29.0-34.0); MCHC 31.6 G/DL (30.0-36.0); MCV 98.8 FL (83-99); MONOCYTE (%) 7.8 % (3-12); NEUTROPHIL (%) 73.4 % (45-76); NEUTROPHIL COUNT 9.4 K/uL (1.8-6.4); PLATELET COUNT 166 K/uL (156-360); RBC DIS.WIDTH-CV 18.6 % (11.8-14.6); RBC DIS.WIDTH-SD 63.9 % (39-53); RED BLOOD COUNT 3.27 M/uL (3.80-5.20); WHITE BLOOD COUNT 12.8 K/uL (4.1-10.2)
[2017-08-21 06:37] LABS: CHLORIDE 102 MEQ/L (99-109); CREATININE 2.8 MG/DL (0.6-1.3); GFR ESTIMATE (CALCULATED) 18 mL/min/; GLUCOSE 89 mg/dL (70-99); POTASSIUM 4.1 MEQ/L (3.7-5.4); SODIUM 136 MEQ/L (136-147); UREA NITROGEN (BUN) 12 mg/dL (9-23)
[2017-08-21 07:58] VITALS: BP 117/63
[2017-08-21 15:02] VITALS: BP 112/55
[2017-08-21 19:31] VITALS: BP 125/61
[2017-08-22 00:03] VITALS: BP 122/60
[2017-08-22 03:59] VITALS: BP 117/61
[2017-08-22 08:24] VITALS: BP 125/59
[2017-08-22 15:58] VITALS: BP 140/61
[2017-08-22] MEDS ORDERED: ENDOCET 5-3251 EACH PO (16:10)
== END 2017-08-22 18:40 | DRG 193 ==
LOC: EME 12:40 → EDOF 16:35 → 2EAST 16:35 → ENRESERV 17:13 → 2EAST 20:09
PROVIDERS: Emergency Medicine; Internal Medicine; Internal Medicine Nephrology
PROC: 5A1D70Z Performance of Urinary Filtration, Intermittent, Less than 6 Hours Per Day (ICD-10-PCS; principal; 2017-08-12)
PROC: 30233N1 Transfusion of Nonautologous Red Blood Cells into Peripheral Vein, Percutaneous Approach (ICD-10-PCS; 2017-08-16)
DX: J18.9 Pneumonia, unspecified organism (principal); I12.0 Hypertensive chronic kidney disease with stage 5 chronic kidney disease or end stage renal disease; N18.6 End stage renal disease; L89.612 Pressure ulcer of right heel, stage 2; C78.00 Secondary malignant neoplasm of unspecified lung; D63.8 Anemia in other chronic diseases classified elsewhere; G30.9 Alzheimer's disease, unspecified; F02.80 Dementia in other diseases classified elsewhere, unspecified severity, without behavioral disturbance, psychotic disturbance, mood disturbance, and anxiety; R77.0 Abnormality of albumin; E78.5 Hyperlipidemia, unspecified; E03.9 Hypothyroidism, unspecified; K21.9 Gastro-esophageal reflux disease without esophagitis; F32.9 Major depressive disorder, single episode, unspecified; F41.9 Anxiety disorder, unspecified; M10.9 Gout, unspecified; S72.141D Displaced intertrochanteric fracture of right femur, subsequent encounter for closed fracture with routine healing; Z85.118 Personal history of other malignant neoplasm of bronchus and lung; Z85.528 Personal history of other malignant neoplasm of kidney; Z87.01 Personal history of pneumonia (recurrent); Z90.5 Acquired absence of kidney; Z99.2 Dependence on renal dialysis; Z88.0 Allergy status to penicillin; Z88.1 Allergy status to other antibiotic agents; Z88.2 Allergy status to sulfonamides
CPT/HCPCS: 71045; 73502; 80048; 80053; 80069; 80202; 82607; 82803; 82948; 83605; 83880; 84443; 84484; 85025; 85027; 86850; 86860; 86870; 86880; 86900; 86901; 86905; 86920; 87040; 87340; 93005; 94640; 94640 76; 94668; 94760; 94799; 97530 GO; 97530 GP; 99202; 99281; 99285; C1755; J0881; J1644; J2543; J3370; J7050; P9016; P9047; Q0169

== ENCOUNTER 2017-08-26 14:40 | Inpatient (IN) | payer OTHER ==
[~2017-08-26] VITALS: Ht 154.9 cm; Wt 86.3 kg
[~2017-08-26 14:40] MED LIST changes: +ARICEPT10 MG PO; +DULCOLAX10 MG PR; +DUONEB 2.5-0.5 M3 ML AEROSOL; +FLEET MINERAL133 ML PR; +LASIX40 MG PO; +MIRALAX17 GM PO; +OMEGA 3-6-9 11200 MG PO; +PHENADOZ25 MG PR; +PROMETHAZINE HC25 M1 PO; +SENNA-S TABLET1 EACH PO; +ZOFRAN4 MG PO
[2017-08-26 17:13] LABS: HEMATOCRIT 32.1 % (36.0-46.0); HEMOGLOBIN 10.4 G/DL (11.9-15.5); MCH 31.2 PG (29.0-34.0); MCHC 32.4 G/DL (30.0-36.0); MCV 96.4 FL (83-99); PLATELET COUNT 209 K/uL (156-360); RBC DIS.WIDTH-CV 18.6 % (11.8-14.6); RBC DIS.WIDTH-SD 65.1 % (39-53); RED BLOOD COUNT 3.33 M/uL (3.80-5.20); WHITE BLOOD COUNT 10.9 K/uL (4.1-10.2)
[2017-08-26 17:26] LABS: ALBUMIN 2.4 g/dL (3.2-4.8)
[2017-08-26 17:27] LABS: CHLORIDE 101 mEq/L (99-109); POTASSIUM 4.2 mEq/L (3.7-5.4); SODIUM 137 mEq/L (136-147)
[2017-08-26 17:29] LABS: GLUCOSE 86 mg/dL (70-99); TOTAL PROTEIN 5.3 g/dL (6.4-8.3)
[2017-08-26 17:31] LABS: TOTAL BILIRUBIN 0.4 mg/dL (0.0-1.0)
[2017-08-26 17:32] LABS: ALKALINE PHOSPHATASE 162 IU/L (3-129)
[2017-08-26 17:33] LABS: GFR ESTIMATE (CALCULATED) 9 mL/min/
[2017-08-26 17:34] LABS: AST (GOT) 25 IU/L (2-34)
[2017-08-26 17:36] LABS: ALT (GPT) 11 IU/L (3-49)
[2017-08-26 17:40] LABS: TROP-I INTERPRETATION NEGATIVE; TROPONIN-I 0.06 ng/mL (0.0-0.30)
[2017-08-26 17:45] LABS: CREATININE 4.8 mg/dL (0.6-1.3); UREA NITROGEN (BUN) 29 mg/dL (9-23)
[2017-08-26 22:13] VITALS: BP 132/65
[2017-08-27] VITALS (7 sets, daily range): BP systolic 117–136; BP diastolic 55–74
[2017-08-27] MEDS ORDERED: OMEGA 3-6-9 CO400 MG PO (14:07)
[2017-08-27] MEDS ORDERED: DIALYVITE TABL1 EACH PO (14:08)
[2017-08-27] MEDS ORDERED: TYLENOL EXTRA500 MG PO (14:10)
[2017-08-27] MEDS ORDERED: ZOLPIDEM TARTRAT5 MG PO (14:12)
[2017-08-27] MEDS ORDERED: MILK OF MAGN PO (14:13)
[2017-08-28 01:43] VITALS: BP 97/54
[2017-08-28 05:27] VITALS: BP 99/44
[2017-08-28 05:48] LABS: HEMATOCRIT 24.5 % (36.0-46.0); MCH 30.4 PG (29.0-34.0); PLATELET COUNT 204 K/uL (156-360); RBC DIS.WIDTH-CV 18.3 % (11.8-14.6); RBC DIS.WIDTH-SD 65.4 % (39-53); WHITE BLOOD COUNT 10.6 K/uL (4.1-10.2)
[2017-08-28 05:50] LABS: HEMOGLOBIN 7.6 G/DL (11.9-15.5)
[2017-08-28 06:01] LABS: CREATININE 5.4 MG/DL (0.6-1.3); GFR ESTIMATE (CALCULATED) 8 mL/min/; GLUCOSE 83 mg/dL (70-99); POTASSIUM 4.2 MEQ/L (3.7-5.4); UREA NITROGEN (BUN) 37 mg/dL (9-23)
[2017-08-28 08:30] VITALS: BP 79/86
[2017-08-28 09:39] VITALS: BP 80/59
[2017-08-28 12:49] LABS: GLUCOSE 84 mg/dL (70-99); POTASSIUM 3.4 MEQ/L (3.7-5.4); UREA NITROGEN (BUN) 18 mg/dL (9-23)
[2017-08-28 12:52] LABS: CHLORIDE 103 MEQ/L (99-109); CREATININE 2.7 MG/DL (0.6-1.3); GFR ESTIMATE (CALCULATED) 18 mL/min/; SODIUM 139 MEQ/L (136-147)
[2017-08-28 14:20] LABS: SODIUM 135 MEQ/L (136-147)
[2017-08-28 14:21] LABS: CHLORIDE 101 MEQ/L (99-109)
[2017-08-28 17:00] VITALS: BP 114/58
[2017-08-28 20:41] VITALS: BP 156/67
[2017-08-29] VITALS (9 sets, daily range): BP systolic 79–138; BP diastolic 46–86
[2017-08-29 06:37] LABS: BASOPHIL (%) 0.3 % (0-1); EOSINOPHIL (%) 1.1 % (0-5); EOSINOPHIL COUNT 0.2 K/uL (0-0.3); HEMATOCRIT 25.7 % (36.0-46.0); IMMATURE GRANULOCYTE (%) 2.5 % (0.0-0.7); LYMPHOCYTE (%) 9.6 % (15-42); LYMPHOCYTE COUNT 1.3 K/uL (1.0-2.8); MCH 30.5 PG (29.0-34.0); MCHC 31.1 G/DL (30.0-36.0); MCV 98.1 FL (83-99); MONOCYTE (%) 7.4 % (3-12); NEUTROPHIL (%) 79.1 % (45-76); NEUTROPHIL COUNT 10.9 K/uL (1.8-6.4); PLATELET COUNT 206 K/uL (156-360); RBC DIS.WIDTH-CV 18.6 % (11.8-14.6); RBC DIS.WIDTH-SD 66.2 % (39-53); RED BLOOD COUNT 2.62 M/uL (3.80-5.20); WHITE BLOOD COUNT 13.8 K/uL (4.1-10.2)
[2017-08-29 07:07] LABS: CHLORIDE 103 MEQ/L (99-109); CREATININE 2.8 MG/DL (0.6-1.3); GFR ESTIMATE (CALCULATED) 18 mL/min/; GLUCOSE 78 mg/dL (70-99); POTASSIUM 4.4 MEQ/L (3.7-5.4); SODIUM 140 MEQ/L (136-147); UREA NITROGEN (BUN) 15 mg/dL (9-23)
[2017-08-29 17:25] LABS: TYPE OF FLUID PERITONEAL
[2017-08-29 17:55] LABS: APPEARANCE LT.YELLOW/SL.HAZY; BODY FLUID RBC'S 780 /MM^3 (0-100); BODY FLUID WBC'S 278 /MM^3 (0-500)
[2017-08-29 18:17] LABS: BODY FLUID EOSINOPHILS 0 % (0-25); MONONUCLEAR WBC'S 72 %; POLYNUCLEAR WBC'S 28 % (0-25)
[2017-08-30] VITALS (7 sets, daily range): BP systolic 72–120; BP diastolic 40–56
[2017-08-30 08:51] LABS: BASOPHIL (%) 0.3 % (0-1); EOSINOPHIL (%) 0.1 % (0-5); HEMATOCRIT 30.3 % (36.0-46.0); HEMOGLOBIN 9.3 G/DL (11.9-15.5); IMMATURE GRANULOCYTE (%) 4.1 % (0.0-0.7); LYMPHOCYTE (%) 7.5 % (15-42); LYMPHOCYTE COUNT 0.9 K/uL (1.0-2.8); MCH 30.5 PG (29.0-34.0); MCHC 30.7 G/DL (30.0-36.0); MCV 99.3 FL (83-99); MONOCYTE (%) 3.5 % (3-12); MONOCYTE COUNT 0.4 K/uL (0-0.8); NEUTROPHIL (%) 84.5 % (45-76); NEUTROPHIL COUNT 10.4 K/uL (1.8-6.4); PLATELET COUNT 233 K/uL (156-360); RBC DIS.WIDTH-CV 18.9 % (11.8-14.6); RED BLOOD COUNT 3.05 M/uL (3.80-5.20); WHITE BLOOD COUNT 12.3 K/uL (4.1-10.2)
[2017-08-30 09:31] LABS: CHLORIDE 101 MEQ/L (99-109); CREATININE 2.8 MG/DL (0.6-1.3); GFR ESTIMATE (CALCULATED) 18 mL/min/; IRON 32 MCG/DL (35-150); PHOSPHORUS 3.1 mg/dL (2.5-4.9); SODIUM 138 MEQ/L (136-147); TRANSFERRIN (TIBC) < 75 mg/dL (215-380); TRANSFERRIN SATUR. 40 % (20-55); UREA NITROGEN (BUN) 18 mg/dL (9-23)
[2017-08-30 09:32] LABS: GLUCOSE 147 mg/dL (70-99); POTASSIUM 3.3 MEQ/L (3.7-5.4)
[2017-08-31 03:58] VITALS: BP 101/74
[2017-08-31 06:30] LABS: ALBUMIN 1.7 G/DL (3.2-4.8); CHLORIDE 102 MEQ/L (99-109); CREATININE 2.8 MG/DL (0.6-1.3); GFR ESTIMATE (CALCULATED) 18 mL/min/; GLUCOSE 126 mg/dL (70-99); PHOSPHORUS 3.4 mg/dL (2.5-4.9); POTASSIUM 3.1 MEQ/L (3.7-5.4); SODIUM 137 MEQ/L (136-147); UREA NITROGEN (BUN) 19 mg/dL (9-23)
[2017-08-31 07:15] VITALS: BP 120/57
[2017-08-31 10:55] VITALS: BP 125/57
[2017-08-31 16:00] VITALS: BP 121/66
[2017-08-31 19:39] VITALS: BP 119/58
[2017-08-31 23:11] VITALS: BP 114/58
[2017-09-01 07:36] LABS: HEMOGLOBIN 9.3 G/DL (11.9-15.5); MCH 30.1 PG (29.0-34.0); MCV 97.1 FL (83-99); RBC DIS.WIDTH-CV 18.6 % (11.8-14.6); RBC DIS.WIDTH-SD 65.1 % (39-53); RED BLOOD COUNT 3.09 M/uL (3.80-5.20); WHITE BLOOD COUNT 8.6 K/uL (4.1-10.2)
[2017-09-01 07:43] LABS: PLATELET CLUMPS PRESENT - PLATELET COUNT APPEARS ADQ.; PLATELET COUNT UNABLE TO REPORT K/uL (156-360)
[2017-09-01 07:47] LABS: CHLORIDE 100 MEQ/L (99-109); CREATININE 2.7 MG/DL (0.6-1.3); GFR ESTIMATE (CALCULATED) 18 mL/min/; GLUCOSE 152 mg/dL (70-99); PHOSPHORUS 2.8 mg/dL (2.5-4.9); POTASSIUM 3.3 MEQ/L (3.7-5.4); SODIUM 134 MEQ/L (136-147); UREA NITROGEN (BUN) 22 mg/dL (9-23)
[2017-09-01 08:33] VITALS: BP 136/74
[2017-09-01 16:49] VITALS: BP 152/77
[2017-09-01 17:40] VITALS: BP 139/65
[2017-09-01 23:31] VITALS: BP 125/61
[2017-09-02 04:20] VITALS: BP 111/56
[2017-09-02 05:56] LABS: BASOPHIL (%) 0.4 % (0-1); EOSINOPHIL (%) 0 % (0-5); HEMATOCRIT 29.6 % (36.0-46.0); HEMOGLOBIN 9.2 G/DL (11.9-15.5); IMMATURE GRANULOCYTE (%) 4.5 % (0.0-0.7); LYMPHOCYTE (%) 8.3 % (15-42); LYMPHOCYTE COUNT 0.7 K/uL (1.0-2.8); MCH 29.9 PG (29.0-34.0); MCHC 31.1 G/DL (30.0-36.0); MCV 96.1 FL (83-99); MONOCYTE (%) 3.6 % (3-12); MONOCYTE COUNT 0.3 K/uL (0-0.8); NEUTROPHIL (%) 83.2 % (45-76); NEUTROPHIL COUNT 7.1 K/uL (1.8-6.4); RBC DIS.WIDTH-CV 18.1 % (11.8-14.6); RBC DIS.WIDTH-SD 63.9 % (39-53); RED BLOOD COUNT 3.08 M/uL (3.80-5.20); WHITE BLOOD COUNT 8.5 K/uL (4.1-10.2)
[2017-09-02 06:20] LABS: CHLORIDE 98 MEQ/L (99-109); CREATININE 2.6 MG/DL (0.6-1.3); GFR ESTIMATE (CALCULATED) 19 mL/min/; GLUCOSE 110 mg/dL (70-99); PHOSPHORUS 2.6 mg/dL (2.5-4.9); SODIUM 133 MEQ/L (136-147); UREA NITROGEN (BUN) 23 mg/dL (9-23)
[2017-09-02 06:26] LABS: PLATELET COUNT 115 K/uL (156-360)
[2017-09-02 11:00] VITALS: BP 132/70
[2017-09-02 15:00] VITALS: BP 128/68
[2017-09-03 03:11] VITALS: BP 114/56
[2017-09-03 06:31] LABS: HEMOGLOBIN 9.7 G/DL (11.9-15.5); MCH 30.1 PG (29.0-34.0); MCHC 31.3 G/DL (30.0-36.0); MCV 96.3 FL (83-99); PLATELET COUNT 98 K/uL (156-360); RBC DIS.WIDTH-CV 18.3 % (11.8-14.6); RBC DIS.WIDTH-SD 64.8 % (39-53); RED BLOOD COUNT 3.22 M/uL (3.80-5.20); WHITE BLOOD COUNT 11.3 K/uL (4.1-10.2)
[2017-09-03 06:56] LABS: ABS NEUTROPHIL COUNT 10.3; ANISOCYTOSIS 2+; EOSINOPHIL ABS CT 0; LYMPHOCYTES 6.1 % (15.0-45.0); MACROCYTES 2+; MONOCYTES 1.7 % (0-9.0); MYELOCYTES 0.9 %; OVALOCYTES 1+; PLAT.SUFFICIENCY DECREASED; SEG.NEUTROPHILS 91.3 % (46.0-76.0); TEAR DROP CELLS 1+; TOX.VACUOLIZATION 1+
[2017-09-03 07:05] VITALS: BP 145/68
[2017-09-03 07:43] LABS: ALBUMIN 2.2 G/DL (3.2-4.8); CHLORIDE 99 MEQ/L (99-109); CREATININE 2.5 MG/DL (0.6-1.3); GFR ESTIMATE (CALCULATED) 20 mL/min/; GLUCOSE 117 mg/dL (70-99); PHOSPHORUS 3.4 mg/dL (2.5-4.9); SODIUM 133 MEQ/L (136-147); UREA NITROGEN (BUN) 24 mg/dL (9-23)
[2017-09-03 07:47] LABS: POTASSIUM 4.2 MEQ/L (3.7-5.4)
[2017-09-03 15:10] VITALS: BP 121/58
[2017-09-03 23:09] VITALS: BP 119/67
[2017-09-04 06:32] LABS: ALBUMIN 2.2 G/DL (3.2-4.8); CHLORIDE 98 MEQ/L (99-109); CREATININE 2.7 MG/DL (0.6-1.3); GFR ESTIMATE (CALCULATED) 18 mL/min/; GLUCOSE 102 mg/dL (70-99); POTASSIUM 4.6 MEQ/L (3.7-5.4); SODIUM 133 MEQ/L (136-147); UREA NITROGEN (BUN) 27 mg/dL (9-23)
[2017-09-04 06:55] VITALS: BP 139/65
[2017-09-04 13:22] LABS: TYPE OF FLUID PD FLUID
[2017-09-04 14:15] LABS: APPEARANCE CLEAR/COLORLESS; BODY FLUID RBC'S 31 /MM^3 (0-100); BODY FLUID WBC'S 5 /MM^3 (0-500)
[2017-09-04 14:57] LABS: BODY FLUID EOSINOPHILS 0 % (0-25); MONONUCLEAR WBC'S 88 %; POLYNUCLEAR WBC'S 12 % (0-25)
[2017-09-04 15:31] VITALS: BP 112/64
[2017-09-04 22:46] VITALS: BP 137/65
[2017-09-05 06:39] LABS: BASOPHIL (%) 0.1 % (0-1); EOSINOPHIL (%) 0.1 % (0-5); HEMATOCRIT 28.7 % (36.0-46.0); HEMOGLOBIN 9.1 G/DL (11.9-15.5); IMMATURE GRANULOCYTE (%) 4.7 % (0.0-0.7); LYMPHOCYTE (%) 10.5 % (15-42); LYMPHOCYTE COUNT 0.9 K/uL (1.0-2.8); MCH 30.3 PG (29.0-34.0); MCHC 31.7 G/DL (30.0-36.0); MCV 95.7 FL (83-99); MONOCYTE (%) 3.2 % (3-12); MONOCYTE COUNT 0.3 K/uL (0-0.8); NEUTROPHIL (%) 81.4 % (45-76); PLATELET COUNT 71 K/uL (156-360); RBC DIS.WIDTH-SD 62.4 % (39-53); WHITE BLOOD COUNT 8.6 K/uL (4.1-10.2)
[2017-09-05 06:55] VITALS: BP 112/50
[2017-09-05 07:09] LABS: ALBUMIN 2.1 G/DL (3.2-4.8); CHLORIDE 97 MEQ/L (99-109); CREATININE 2.7 MG/DL (0.6-1.3); GFR ESTIMATE (CALCULATED) 18 mL/min/; GLUCOSE 106 mg/dL (70-99); PHOSPHORUS 2.9 mg/dL (2.5-4.9); POTASSIUM 4.2 MEQ/L (3.7-5.4); SODIUM 132 MEQ/L (136-147); UREA NITROGEN (BUN) 31 mg/dL (9-23)
[2017-09-05 09:30] VITALS: BP 122/72
[2017-09-05 12:50] VITALS: BP 148/67
[2017-09-05 13:40] VITALS: BP 112/56
[2017-09-05] MEDS ORDERED: LINEZOLID600 MG PO (17:55)
[2017-09-05 18:45] VITALS: BP 112/50
[2017-09-05 23:55] VITALS: BP 96/50
[2017-09-06 06:14] LABS: HEMATOCRIT 28.5 % (36.0-46.0); MCH 30.4 PG (29.0-34.0); MCHC 31.6 G/DL (30.0-36.0); MCV 96.3 FL (83-99); NRBC (%) 0.2 /100 WBC (0-0); PLATELET COUNT 67 K/uL (156-360); RBC DIS.WIDTH-CV 18.1 % (11.8-14.6); RED BLOOD COUNT 2.96 M/uL (3.80-5.20); WHITE BLOOD COUNT 12.5 K/uL (4.1-10.2)
[2017-09-06 06:39] LABS: CHLORIDE 102 MEQ/L (99-109); GFR ESTIMATE (CALCULATED) 29 mL/min/; POTASSIUM 3.8 MEQ/L (3.7-5.4); SODIUM 137 MEQ/L (136-147); UREA NITROGEN (BUN) 19 mg/dL (9-23)
[2017-09-06 06:41] LABS: CREATININE 1.8 MG/DL (0.6-1.3); GLUCOSE 70 mg/dL (70-99)
[2017-09-06 07:38] VITALS: BP 100/68
== END 2017-09-06 15:35 | DRG 314 ==
LOC: EME 14:40 → 2EASTP 20:54 → 5EAST 20:54 → EDOF 20:54 → 3EAST 20:54 → ENRESERV 20:56 → 2EASTP 21:57 → ENRESERV 08-28 00:41 → 3EAST 08-28 01:40 → CANRESERV 08-29 08:25 → ENRESERV 08-29 08:25 → 5EAST 08-29 12:32
PROVIDERS: Emergency Medicine; Family Medicine; Internal Medicine Nephrology
PROC: 02PYX3Z Removal of Infusion Device from Great Vessel, External Approach (ICD-10-PCS; principal; 2017-08-28)
PROC: 0JPVXXZ Removal of Tunneled Vascular Access Device from Upper Extremity Subcutaneous Tissue and Fascia, External Approach (ICD-10-PCS; principal; 2017-08-28)
PROC: 3E1M39Z Irrigation of Peritoneal Cavity using Dialysate, Percutaneous Approach (ICD-10-PCS; 2017-08-29)
PROC: 0BC78ZZ Extirpation of Matter from Left Main Bronchus, Via Natural or Artificial Opening Endoscopic (ICD-10-PCS; 2017-08-29)
PROC: 0JH63XZ Insertion of Tunneled Vascular Access Device into Chest Subcutaneous Tissue and Fascia, Percutaneous Approach (ICD-10-PCS; 2017-09-05)
PROC: B5181ZA Fluoroscopy of Superior Vena Cava using Low Osmolar Contrast, Guidance (ICD-10-PCS; 2017-09-05)
PROC: 02HV33Z Insertion of Infusion Device into Superior Vena Cava, Percutaneous Approach (ICD-10-PCS; 2017-09-05)
DX: T82.7XXA Infection and inflammatory reaction due to other cardiac and vascular devices, implants and grafts, initial encounter (principal); A41.81 Sepsis due to Enterococcus; L89.101 Pressure ulcer of unspecified part of back, stage 1; L89.323 Pressure ulcer of left buttock, stage 3; L89.313 Pressure ulcer of right buttock, stage 3; J18.9 Pneumonia, unspecified organism; I12.0 Hypertensive chronic kidney disease with stage 5 chronic kidney disease or end stage renal disease; L89.612 Pressure ulcer of right heel, stage 2; L89.899 Pressure ulcer of other site, unspecified stage; E46 Unspecified protein-calorie malnutrition; N18.6 End stage renal disease; J90 Pleural effusion, not elsewhere classified; T17.890A Other foreign object in other parts of respiratory tract causing asphyxiation, initial encounter; E87.0 Hyperosmolality and hypernatremia; Z90.710 Acquired absence of both cervix and uterus; F03.90 Unspecified dementia, unspecified severity, without behavioral disturbance, psychotic disturbance, mood disturbance, and anxiety; Z99.2 Dependence on renal dialysis; M10.9 Gout, unspecified; E78.5 Hyperlipidemia, unspecified; Z85.528 Personal history of other malignant neoplasm of kidney; M19.90 Unspecified osteoarthritis, unspecified site; K21.9 Gastro-esophageal reflux disease without esophagitis; E03.9 Hypothyroidism, unspecified; F41.8 Other specified anxiety disorders; I25.10 Atherosclerotic heart disease of native coronary artery without angina pectoris; J98.11 Atelectasis; G47.00 Insomnia, unspecified; E87.6 Hypokalemia; D63.8 Anemia in other chronic diseases classified elsewhere; S22.49XD Multiple fractures of ribs, unspecified side, subsequent encounter for fracture with routine healing; M80.88XG Other osteoporosis with current pathological fracture, vertebra(e), subsequent encounter for fracture with delayed healing; S72.141D Displaced intertrochanteric fracture of right femur, subsequent encounter for closed fracture with routine healing; Z87.01 Personal history of pneumonia (recurrent); Z90.5 Acquired absence of kidney; Y95 Nosocomial condition; Z16.21 Resistance to vancomycin; Y83.8 Other surgical procedures as the cause of abnormal reaction of the patient, or of later complication, without mention of misadventure at the time of the procedure; Z80.7 Family history of other malignant neoplasms of lymphoid, hematopoietic and related tissues; Z85.118 Personal history of other malignant neoplasm of bronchus and lung; K59.03 Drug induced constipation; T40.2X5A Adverse effect of other opioids, initial encounter; B36.9 Superficial mycosis, unspecified; Z74.01 Bed confinement status
CPT/HCPCS: 71045; 71250; 76604; 80048; 80048 91; 80053; 80069; 82948; 83540; 83605; 83880; 84466; 84484; 85025; 85027; 87040; 87070; 87075; 87077; 87186; 87205; 87801; 89051; 93005; 94010; 94640; 94640 76; 94667; 94668; 94760; 94799; 97530 GO; 97530 GP; 99202; 99281; 99285; C1750; C1755; C1769; C1894; J0692; J0881; J1644; J2020; J2250; J2920; J3010; J3370; J7030; J7040; J7512; S0020

== ENCOUNTER 2017-09-16 06:30 | Day surgery (SDC) | payer OTHER ==
[~2017-09-16] VITALS: Ht 154.9 cm; Wt 82.0 kg
[~2017-09-16 06:30] MED LIST changes: +DIALYVITE TABL1 EACH PO; +LINEZOLID600 MG PO; +MILK OF MAGN PO; +OMEGA 3-6-9 CO400 MG PO; +ZOLPIDEM TARTRAT5 MG PO
== END 2017-09-16 09:20 ==
LOC: CATH 06:30
DX: T82.41XA Breakdown (mechanical) of vascular dialysis catheter, initial encounter (principal); I12.0 Hypertensive chronic kidney disease with stage 5 chronic kidney disease or end stage renal disease; N18.6 End stage renal disease; Z99.2 Dependence on renal dialysis; K21.9 Gastro-esophageal reflux disease without esophagitis; E78.5 Hyperlipidemia, unspecified
CPT/HCPCS: 87641; C1750; J1644; J2250; J3010; S0020

== ENCOUNTER 2017-10-18 23:17 | Inpatient (IN) | payer OTHER ==
[~2017-10-18] VITALS: Ht 157.5 cm; Wt 84.4 kg
[2017-10-18 23:56] LABS: HEMATOCRIT 24.5 % (36.0-46.0); HEMOGLOBIN 7.2 G/DL (11.9-15.5); MCH 30.5 PG (29.0-34.0); MCHC 29.4 G/DL (30.0-36.0); MCV 103.8 FL (83-99); PLATELET COUNT 135 K/uL (156-360); RBC DIS.WIDTH-CV 20.1 % (11.8-14.6); RBC DIS.WIDTH-SD 76.1 % (39-53); RED BLOOD COUNT 2.36 M/uL (3.80-5.20); WHITE BLOOD COUNT 9.7 K/uL (4.1-10.2)
[2017-10-19] VITALS (28 sets, daily range): BP systolic 80–140; BP diastolic 36–104
[2017-10-19 00:03] LABS: INTER. NORMALIZED RATIO 1.2
[2017-10-19 00:23] LABS: CHLORIDE 101 MEQ/L (99-109); MAGNESIUM 1.8 mg/dl (1.3-2.7); POTASSIUM 3.7 MEQ/L (3.7-5.4); SODIUM 142 MEQ/L (136-147)
[2017-10-19 00:26] LABS: TROP-I INTERPRETATION NEGATIVE; TROPONIN-I 0.02 ng/mL (0.0-0.30)
[2017-10-19 00:28] LABS: CREATININE 2.1 MG/DL (0.6-1.3); GFR ESTIMATE (CALCULATED) 24 mL/min/; GLUCOSE 113 mg/dL (70-99); UREA NITROGEN (BUN) 10 mg/dL (9-23)
[2017-10-19 00:57] LABS: APPEARANCE TURBID ((CLEAR)); BILIRUBIN NEGATIVE; BLOOD MODERATE; COLOR AMBER ((YELLOW)); GLUCOSE (STRIP) NEGATIVE; KETONES NEGATIVE; LEUKOCYTES LARGE; NITRITE NEGATIVE; PROTEIN (STRIP) 100; SPECIFIC GRAVITY 1.014 (1.000-1.030); UROBILINOGEN 0.2 MG/DL (0.2-1.0)
[2017-10-19 01:05] LABS: BACTERIA 3+ /HPF; EPITHELIAL CELLS 4+ /HPF; MUCUS 2+ /LPF; RED BLOOD CELLS TNTC /HPF (0-5); UCUL ADDED? YES; WHITE BLOOD CELLS TNTC /HPF (0-5)
[2017-10-19 02:20] LABS: BASOPHIL (%) 0.3 % (0-1); EOSINOPHIL (%) 1.3 % (0-5); EOSINOPHIL COUNT 0.1 K/uL (0-0.3); LYMPHOCYTE COUNT 2.7 K/uL (1.0-2.8); MONOCYTE (%) 7.9 % (3-12); MONOCYTE COUNT 0.8 K/uL (0-0.8); NEUTROPHIL (%) 61.5 % (45-76); NEUTROPHIL COUNT 5.9 K/uL (1.8-6.4)
[2017-10-19 09:03] LABS: BASOPHIL (%) 0.3 % (0-1); EOSINOPHIL (%) 3.1 % (0-5); EOSINOPHIL COUNT 0.3 K/uL (0-0.3); HEMATOCRIT 26.9 % (36.0-46.0); HEMOGLOBIN 7.9 G/DL (11.9-15.5); IMMATURE GRANULOCYTE (%) 0.7 % (0.0-0.7); LYMPHOCYTE (%) 19.8 % (15-42); LYMPHOCYTE COUNT 1.9 K/uL (1.0-2.8); MCH 30.3 PG (29.0-34.0); MCHC 29.4 G/DL (30.0-36.0); MCV 103.1 FL (83-99); MONOCYTE (%) 8.7 % (3-12); MONOCYTE COUNT 0.8 K/uL (0-0.8); NEUTROPHIL (%) 67.4 % (45-76); NEUTROPHIL COUNT 6.3 K/uL (1.8-6.4); PLATELET COUNT 132 K/uL (156-360); RBC DIS.WIDTH-CV 20.1 % (11.8-14.6); RBC DIS.WIDTH-SD 75.4 % (39-53); RED BLOOD COUNT 2.61 M/uL (3.80-5.20); WHITE BLOOD COUNT 9.4 K/uL (4.1-10.2)
[2017-10-19 09:26] LABS: CHLORIDE 103 MEQ/L (99-109); CREATININE 2.2 MG/DL (0.6-1.3); GFR ESTIMATE (CALCULATED) 23 mL/min/; GLUCOSE 89 mg/dL (70-99); MAGNESIUM 1.8 mg/dl (1.3-2.7); POTASSIUM 3.8 MEQ/L (3.7-5.4); SODIUM 142 MEQ/L (136-147); UREA NITROGEN (BUN) 10 mg/dL (9-23)
[2017-10-19 17:08] LABS: TYPE OF FLUID PD FLUID
[2017-10-19 18:55] LABS: APPEARANCE HAZY/COLORLESS
[2017-10-19 18:56] LABS: BODY FLUID RBC'S 28 /MM^3 (0-100); BODY FLUID WBC'S 85 /MM^3 (0-500)
[2017-10-19 19:28] LABS: BODY FLUID EOSINOPHILS 0 % (0-25); MONONUCLEAR WBC'S 68 %; POLYNUCLEAR WBC'S 32 % (0-25)
[2017-10-20] VITALS (19 sets, daily range): BP systolic 95–175; BP diastolic 62–89
[2017-10-20 05:43] LABS: BASOPHIL (%) 0.5 % (0-1); BASOPHIL COUNT 0.1 K/uL (0-0.1); EOSINOPHIL COUNT 0.6 K/uL (0-0.3); HEMATOCRIT 34.4 % (36.0-46.0); IMMATURE GRANULOCYTE (%) 0.9 % (0.0-0.7); LYMPHOCYTE COUNT 2.2 K/uL (1.0-2.8); MCH 29.4 PG (29.0-34.0); MCHC 29.1 G/DL (30.0-36.0); MCV 101.2 FL (83-99); MONOCYTE (%) 8.7 % (3-12); MONOCYTE COUNT 0.8 K/uL (0-0.8); NEUTROPHIL (%) 59.9 % (45-76); NEUTROPHIL COUNT 5.5 K/uL (1.8-6.4); PLATELET COUNT 156 K/uL (156-360); RBC DIS.WIDTH-CV 19.2 % (11.8-14.6); RBC DIS.WIDTH-SD 71.2 % (39-53); WHITE BLOOD COUNT 9.2 K/uL (4.1-10.2)
[2017-10-20 06:11] LABS: ALBUMIN 1.9 G/DL (3.2-4.8); CHLORIDE 103 MEQ/L (99-109); GFR ESTIMATE (CALCULATED) 18 mL/min/; GLUCOSE 89 mg/dL (70-99); IRON 23 MCG/DL (35-150); MAGNESIUM 1.9 mg/dl (1.3-2.7); PHOSPHORUS 3.5 mg/dL (2.5-4.9); POTASSIUM 3.6 MEQ/L (3.7-5.4); SODIUM 141 MEQ/L (136-147); TRANSFERRIN (TIBC) 103.8 mg/dL (215-380); TRANSFERRIN SATUR. 22 % (20-55); UREA NITROGEN (BUN) 12 mg/dL (9-23)
[2017-10-20 06:14] LABS: CREATININE 2.7 MG/DL (0.6-1.3)
[2017-10-20 08:35] LABS: THYROTROPIN (TSH) 2.2 MIU/L (0.4-5.5)
[2017-10-20 08:50] LABS: FOLIC ACID (FOLATE) > 22.0 NG/ML (5.0-22.0)
[2017-10-20] MEDS ORDERED: NEXIUM40 MG PO (11:31)
[2017-10-20] MEDS ORDERED: XANAX0.25 MG PO (11:31)
[2017-10-20 18:22] LABS: INTER. NORMALIZED RATIO 1.2
[2017-10-20 18:24] LABS: PTT 31.6 SEC (25-37)
[2017-10-21 03:33] VITALS: BP 150/67
[2017-10-21 06:38] LABS: BASOPHIL (%) 0.9 % (0-1); BASOPHIL COUNT 0.1 K/uL (0-0.1); EOSINOPHIL (%) 4.6 % (0-5); EOSINOPHIL COUNT 0.6 K/uL (0-0.3); HEMOGLOBIN 11.2 G/DL (11.9-15.5); IMMATURE GRANULOCYTE (%) 1.1 % (0.0-0.7); LYMPHOCYTE (%) 26.1 % (15-42); LYMPHOCYTE COUNT 3.2 K/uL (1.0-2.8); MCH 29.7 PG (29.0-34.0); MCHC 30.3 G/DL (30.0-36.0); MCV 98.1 FL (83-99); MONOCYTE (%) 7.8 % (3-12); NEUTROPHIL (%) 59.5 % (45-76); NEUTROPHIL COUNT 7.3 K/uL (1.8-6.4); PLATELET COUNT 200 K/uL (156-360); RBC DIS.WIDTH-CV 18.5 % (11.8-14.6); RBC DIS.WIDTH-SD 66.1 % (39-53); RED BLOOD COUNT 3.77 M/uL (3.80-5.20); WHITE BLOOD COUNT 12.3 K/uL (4.1-10.2)
[2017-10-21 07:07] LABS: ALBUMIN 2.1 G/DL (3.2-4.8); CHLORIDE 103 MEQ/L (99-109); GFR ESTIMATE (CALCULATED) 14 mL/min/; GLUCOSE 88 mg/dL (70-99); PHOSPHORUS 4.2 mg/dL (2.5-4.9); POTASSIUM 3.8 MEQ/L (3.7-5.4); SODIUM 142 MEQ/L (136-147); UREA NITROGEN (BUN) 15 mg/dL (9-23)
[2017-10-21 07:10] LABS: CREATININE 3.3 MG/DL (0.6-1.3)
[2017-10-21 07:14] LABS: PTT 92.9 SEC (25-37)
[2017-10-21 07:23] VITALS: BP 148/76
[2017-10-21 09:28] LABS: INTER. NORMALIZED RATIO 1.2
[2017-10-21 16:22] VITALS: BP 135/61
[2017-10-21 18:45] VITALS: BP 121/56
[2017-10-21 22:50] VITALS: BP 110/56
[2017-10-22 06:15] LABS: BASOPHIL (%) 0.8 % (0-1); BASOPHIL COUNT 0.1 K/uL (0-0.1); EOSINOPHIL COUNT 0.5 K/uL (0-0.3); HEMATOCRIT 35.5 % (36.0-46.0); HEMOGLOBIN 10.5 G/DL (11.9-15.5); IMMATURE GRANULOCYTE (%) 1.4 % (0.0-0.7); LYMPHOCYTE (%) 30.9 % (15-42); LYMPHOCYTE COUNT 3.2 K/uL (1.0-2.8); MCH 29.5 PG (29.0-34.0); MCHC 29.6 G/DL (30.0-36.0); MCV 99.7 FL (83-99); MONOCYTE (%) 10.6 % (3-12); MONOCYTE COUNT 1.1 K/uL (0-0.8); NEUTROPHIL (%) 51.3 % (45-76); NEUTROPHIL COUNT 5.4 K/uL (1.8-6.4); PLATELET COUNT 199 K/uL (156-360); RBC DIS.WIDTH-CV 18.3 % (11.8-14.6); RBC DIS.WIDTH-SD 67.7 % (39-53); RED BLOOD COUNT 3.56 M/uL (3.80-5.20); WHITE BLOOD COUNT 10.5 K/uL (4.1-10.2)
[2017-10-22 06:32] LABS: INTER. NORMALIZED RATIO 1.3
[2017-10-22 06:42] LABS: ALBUMIN 1.9 G/DL (3.2-4.8); CHLORIDE 101 MEQ/L (99-109); GFR ESTIMATE (CALCULATED) 20 mL/min/; GLUCOSE 67 mg/dL (70-99); PHOSPHORUS 3.9 mg/dL (2.5-4.9); POTASSIUM 3.6 MEQ/L (3.7-5.4); SODIUM 139 MEQ/L (136-147); UREA NITROGEN (BUN) 10 mg/dL (9-23)
[2017-10-22 06:43] LABS: CREATININE 2.5 MG/DL (0.6-1.3)
[2017-10-22 07:18] VITALS: BP 119/56
[2017-10-22 15:30] VITALS: BP 115/58
[2017-10-22 23:01] VITALS: BP 113/56
[2017-10-23 03:13] LABS: ALBUMIN 2.1 g/dL (3.2-4.8); CHLORIDE 101 mEq/L (99-109)
[2017-10-23 03:14] LABS: POTASSIUM 3.6 mEq/L (3.7-5.4); SODIUM 136 mEq/L (136-147)
[2017-10-23 03:16] LABS: GLUCOSE 86 mg/dL (70-99); INTER. NORMALIZED RATIO 1.2
[2017-10-23 03:19] LABS: GFR ESTIMATE (CALCULATED) 16 mL/min/; PHOSPHORUS 4.4 mg/dL (2.5-4.9)
[2017-10-23 03:20] LABS: UREA NITROGEN (BUN) 10 mg/dL (9-23)
[2017-10-23 03:21] LABS: CREATININE 3.1 mg/dL (0.6-1.3)
[2017-10-23 06:45] VITALS: BP 127/60
[2017-10-23 14:05] LABS: HEPATITIS B SURFACE ANTIGEN Nonreactive
[2017-10-23 17:47] VITALS: BP 170/78
[2017-10-23 17:49] VITALS: BP 125/61
[2017-10-24 02:59] LABS: HEMATOCRIT 32.7 % (36.0-46.0); MCH 30.4 PG (29.0-34.0); MCHC 30.6 G/DL (30.0-36.0); MCV 99.4 FL (83-99); RBC DIS.WIDTH-CV 18.1 % (11.8-14.6); RBC DIS.WIDTH-SD 66.4 % (39-53); RED BLOOD COUNT 3.29 M/uL (3.80-5.20); WHITE BLOOD COUNT 7.5 K/uL (4.1-10.2)
[2017-10-24 03:05] LABS: ALBUMIN 2.4 g/dL (3.2-4.8)
[2017-10-24 03:06] LABS: CHLORIDE 103 mEq/L (99-109); POTASSIUM 3.9 mEq/L (3.7-5.4); SODIUM 138 mEq/L (136-147)
[2017-10-24 03:08] LABS: GLUCOSE 82 mg/dL (70-99); INTER. NORMALIZED RATIO 1.3
[2017-10-24 03:11] LABS: PHOSPHORUS 3.6 mg/dL (2.5-4.9)
[2017-10-24 03:12] LABS: CREATININE 2.3 mg/dL (0.6-1.3); GFR ESTIMATE (CALCULATED) 22 mL/min/
[2017-10-24 03:13] LABS: UREA NITROGEN (BUN) 6 mg/dL (9-23)
[2017-10-24 03:33] LABS: BASOPHIL (%) 0.5 % (0-1); EOSINOPHIL (%) 3.1 % (0-5); EOSINOPHIL COUNT 0.2 K/uL (0-0.3); IMMATURE GRANULOCYTE (%) 1.2 % (0.0-0.7); LYMPHOCYTE (%) 32.9 % (15-42); LYMPHOCYTE COUNT 2.5 K/uL (1.0-2.8); MONOCYTE (%) 12.6 % (3-12); NEUTROPHIL (%) 49.7 % (45-76); NEUTROPHIL COUNT 3.7 K/uL (1.8-6.4)
[2017-10-24 05:21] LABS: PLAT.SUFFICIENCY DECREASED
[2017-10-24 06:18] LABS: PLATELET COUNT 121 K/uL (156-360)
[2017-10-24 07:00] VITALS: BP 128/72
[2017-10-24 15:00] VITALS: BP 130/62
[2017-10-24 21:49] LABS: C DIFF TOXIN NEGATIVE (NEGATIVE)
[2017-10-24 23:02] VITALS: BP 127/61
[2017-10-25 06:13] LABS: INTER. NORMALIZED RATIO 1.9
[2017-10-25 06:16] LABS: PTT 60.6 SEC (25-37)
[2017-10-25 06:31] LABS: ALBUMIN 2.4 G/DL (3.2-4.8); CHLORIDE 104 MEQ/L (99-109); GFR ESTIMATE (CALCULATED) 17 mL/min/; GLUCOSE 83 mg/dL (70-99); PHOSPHORUS 3.9 mg/dL (2.5-4.9); POTASSIUM 3.6 MEQ/L (3.7-5.4); SODIUM 140 MEQ/L (136-147); UREA NITROGEN (BUN) 9 mg/dL (9-23)
[2017-10-25 06:37] LABS: CREATININE 2.9 MG/DL (0.6-1.3)
[2017-10-25 07:05] VITALS: BP 140/63
[2017-10-25 12:29] LABS: BASOPHIL (%) 0.7 % (0-1); BASOPHIL COUNT 0.1 K/uL (0-0.1); EOSINOPHIL COUNT 0.2 K/uL (0-0.3); HEMATOCRIT 34.8 % (36.0-46.0); HEMOGLOBIN 10.3 G/DL (11.9-15.5); IMMATURE GRANULOCYTE (%) 1.4 % (0.0-0.7); LYMPHOCYTE (%) 34.4 % (15-42); LYMPHOCYTE COUNT 2.5 K/uL (1.0-2.8); MCH 29.3 PG (29.0-34.0); MCHC 29.6 G/DL (30.0-36.0); MCV 99.1 FL (83-99); MONOCYTE (%) 12.5 % (3-12); MONOCYTE COUNT 0.9 K/uL (0-0.8); NEUTROPHIL COUNT 3.5 K/uL (1.8-6.4); RBC DIS.WIDTH-CV 17.6 % (11.8-14.6); RBC DIS.WIDTH-SD 63.7 % (39-53); RED BLOOD COUNT 3.51 M/uL (3.80-5.20); WHITE BLOOD COUNT 7.4 K/uL (4.1-10.2)
[2017-10-25 12:32] LABS: PLATELET COUNT 183 K/uL (156-360)
[2017-10-25 16:50] VITALS: BP 134/63
[2017-10-25 23:49] VITALS: BP 114/59
[2017-10-26 01:27] LABS: BASOPHIL (%) 0.5 % (0-1); EOSINOPHIL (%) 1.6 % (0-5); EOSINOPHIL COUNT 0.1 K/uL (0-0.3); HEMATOCRIT 34.6 % (36.0-46.0); HEMOGLOBIN 10.5 G/DL (11.9-15.5); IMMATURE GRANULOCYTE (%) 1.2 % (0.0-0.7); LYMPHOCYTE (%) 34.6 % (15-42); LYMPHOCYTE COUNT 2.6 K/uL (1.0-2.8); MCH 29.7 PG (29.0-34.0); MCHC 30.3 G/DL (30.0-36.0); MONOCYTE (%) 13.3 % (3-12); NEUTROPHIL (%) 48.8 % (45-76); NEUTROPHIL COUNT 3.6 K/uL (1.8-6.4); PLATELET COUNT 139 K/uL (156-360); RBC DIS.WIDTH-CV 17.6 % (11.8-14.6); RBC DIS.WIDTH-SD 63.7 % (39-53); RED BLOOD COUNT 3.53 M/uL (3.80-5.20); WHITE BLOOD COUNT 7.4 K/uL (4.1-10.2)
[2017-10-26 01:32] LABS: INTER. NORMALIZED RATIO 2.1
[2017-10-26 01:38] LABS: ALBUMIN 2.3 g/dL (3.2-4.8)
[2017-10-26 01:39] LABS: CHLORIDE 104 mEq/L (99-109); POTASSIUM 4.2 mEq/L (3.7-5.4); SODIUM 140 mEq/L (136-147)
[2017-10-26 01:41] LABS: GLUCOSE 81 mg/dL (70-99)
[2017-10-26 01:44] LABS: GFR ESTIMATE (CALCULATED) 23 mL/min/
[2017-10-26 01:45] LABS: CREATININE 2.2 mg/dL (0.6-1.3); UREA NITROGEN (BUN) 5 mg/dL (9-23)
[2017-10-26 02:12] LABS: PHOSPHORUS 3.1 mg/dL (2.5-4.9)
[2017-10-26 07:10] VITALS: BP 145/65
[2017-10-26 15:30] VITALS: BP 123/58
[2017-10-26 23:11] VITALS: BP 133/68
[2017-10-27 05:42] LABS: INTER. NORMALIZED RATIO 2.5
[2017-10-27 05:52] LABS: CHLORIDE 104 MEQ/L (99-109); GFR ESTIMATE (CALCULATED) 17 mL/min/; GLUCOSE 73 mg/dL (70-99); POTASSIUM 4.1 MEQ/L (3.7-5.4); SODIUM 140 MEQ/L (136-147); UREA NITROGEN (BUN) 8 mg/dL (9-23)
[2017-10-27 06:08] LABS: BASOPHIL (%) 0.7 % (0-1); BASOPHIL COUNT 0.1 K/uL (0-0.1); EOSINOPHIL (%) 2.4 % (0-5); EOSINOPHIL COUNT 0.2 K/uL (0-0.3); HEMATOCRIT 35.7 % (36.0-46.0); HEMOGLOBIN 10.8 G/DL (11.9-15.5); LYMPHOCYTE (%) 39.2 % (15-42); LYMPHOCYTE COUNT 2.8 K/uL (1.0-2.8); MCH 29.6 PG (29.0-34.0); MCHC 30.3 G/DL (30.0-36.0); MCV 97.8 FL (83-99); MONOCYTE (%) 13.4 % (3-12); MONOCYTE COUNT 0.9 K/uL (0-0.8); NEUTROPHIL (%) 43.3 % (45-76); NEUTROPHIL COUNT 3.1 K/uL (1.8-6.4); RBC DIS.WIDTH-CV 17.5 % (11.8-14.6); RBC DIS.WIDTH-SD 63.3 % (39-53); RED BLOOD COUNT 3.65 M/uL (3.80-5.20)
[2017-10-27 06:09] LABS: PLATELET COUNT 181 K/uL (156-360)
[2017-10-27 06:11] LABS: CREATININE 2.9 MG/DL (0.6-1.3)
[2017-10-27 07:10] VITALS: BP 135/69
[2017-10-27 23:50] VITALS: BP 120/58
[2017-10-28 00:37] VITALS: BP 102/50
[2017-10-28 05:17] LABS: INTER. NORMALIZED RATIO 2.3
[2017-10-28 07:18] VITALS: BP 136/65
[2017-10-28 15:51] VITALS: BP 118/60
[2017-10-28] MEDS ORDERED: MIDODRINE HCL5 MG PO (16:38)
== END 2017-10-28 19:05 | DRG 175 ==
LOC: EME → EDSEX 23:17 → EDBD 23:17 → EME 23:17 → 4WEST 10-19 02:35 → EDOF 10-19 02:35 → 5EAST 10-19 02:35 → ENRESERV 10-19 02:40 → 4WEST 10-19 03:12 → ENRESERV 10-20 14:56 → 5EAST 10-20 15:45
PROVIDERS: Emergency Medicine; Family Medicine; Internal Medicine; Internal Medicine Nephrology; Specialist
PROC: 30233N1 Transfusion of Nonautologous Red Blood Cells into Peripheral Vein, Percutaneous Approach (ICD-10-PCS; principal; 2017-10-19)
PROC: 5A1D70Z Performance of Urinary Filtration, Intermittent, Less than 6 Hours Per Day (ICD-10-PCS; 2017-10-21)
DX: I26.09 Other pulmonary embolism with acute cor pulmonale (principal); I82.423 Acute embolism and thrombosis of iliac vein, bilateral; I82.4Z3 Acute embolism and thrombosis of unspecified deep veins of distal lower extremity, bilateral; I82.411 Acute embolism and thrombosis of right femoral vein; I82.431 Acute embolism and thrombosis of right popliteal vein; I82.812 Embolism and thrombosis of superficial veins of left lower extremity; L89.313 Pressure ulcer of right buttock, stage 3; L89.323 Pressure ulcer of left buttock, stage 3; L89.613 Pressure ulcer of right heel, stage 3; R82.71 Bacteriuria; I95.9 Hypotension, unspecified; C78.00 Secondary malignant neoplasm of unspecified lung; I12.0 Hypertensive chronic kidney disease with stage 5 chronic kidney disease or end stage renal disease; N18.6 End stage renal disease; I27.21 Secondary pulmonary arterial hypertension; D63.1 Anemia in chronic kidney disease; F03.90 Unspecified dementia, unspecified severity, without behavioral disturbance, psychotic disturbance, mood disturbance, and anxiety; E87.6 Hypokalemia; T85.611A Breakdown (mechanical) of intraperitoneal dialysis catheter, initial encounter; Y81.2 Prosthetic and other implants, materials and accessory general- and plastic-surgery devices associated with adverse incidents; E03.9 Hypothyroidism, unspecified; E78.5 Hyperlipidemia, unspecified; M10.9 Gout, unspecified; E27.9 Disorder of adrenal gland, unspecified; F32.9 Major depressive disorder, single episode, unspecified; F41.9 Anxiety disorder, unspecified; K21.9 Gastro-esophageal reflux disease without esophagitis; Z99.2 Dependence on renal dialysis; Z90.5 Acquired absence of kidney; Z90.2 Acquired absence of lung [part of]; Z85.528 Personal history of other malignant neoplasm of kidney; Z86.718 Personal history of other venous thrombosis and embolism; Z74.01 Bed confinement status
CPT/HCPCS: 71045; 71250; 71275; 80048; 80069; 81003; 82607; 82746; 83540; 83605; 83735; 84443; 84466; 84484; 85025; 85610; 85730; 86850; 86900; 86901; 86920; 87040; 87070; 87075; 87086 GA; 87205; 87340; 87493; 87641; 89051; 93005; 93970; 94760; 94799; 97530 GP; 99281; 99285; J1644; J1956; J2020; J2405; J7030; P9016; P9047; S0028; S0030